=== PATIENT | male | born 1975 | race Caucasian/White ===

== ENCOUNTER → 2018-03-10 13:11 | Outpatient (CLI) | payer MEDICAID, SELFPAY ==
--- NOTE | 2018-03-10 13:15 | MRI_ITS ---
STUDY: MRI RIGHT ELBOW REASON FOR EXAM: Male, 42 years old. Pain. TECHNIQUE: Standardized fat and water weighted pulse sequences were obtained in all 3 orthogonal planes. COMPARISON: December 29, 2016. FINDINGS: There is a small volume joint effusion of the radio-capitellum articulation. Normal radial collateral ligamentous complex. There is a tendinosis of the common extensor tendon origin with a partial deep surface tear, series 4 images 9/20 and 10/20. There is mild lateral epicondylar edema, series 4 image 11/20. Normal ulnotrochlear articulation. Normal ulnar collateral ligamentous complex. There is tendinosis with tendon thickening of the common flexor tendon. The cubital tunnel is normal, with a normal ulnar nerve. Normal biceps tendon and distal insertion. Normal lacertus fibrosis. Normal brachialis musculotendinous insertion. Normal triceps tendon and teno-osseous insertion. Normal olecranon process. The visualized distal humerus, proximal radius, and ulna are normal. The visualized muscles of the distal arm and proximal forearm are normal. The soft tissue structures are unremarkable. MRI/Upper Ext Joint Only(Routine) IMPRESSION: Lateral epicondylitis with tendinosis and partial tearing of the common extensor tendon. Electronically Signed: Mauri Hendrickson MD at 8:38 EST , Service support ,
--- OUTSIDE RECORDS SUMMARY | 2018-05-15 03:11 | XMS RPT_ITS ---
:1975 Author Organization [facility] Care Team Providers Name Role Phone WAYDoris PA, MRElio EATON Attending Unavailable WAYT PA, MR. EATON Primary Care Unavailable LEMON, MICAH (PT) Attending Unavailable WAYT, DENNIS P (PA) Referring Unavailable LEMON, MICAH (PT) Attending Unavailable WAYT, DENNIS P (PA) Referring Unavailable WAYT, DENNIS P (PA) Referring Unavailable LEMON, MICAH (PT) Attending Unavailable WAYT, DENNIS P (PA) Referring Unavailable LEMON, MICAH (PT) Attending Unavailable WAYT, DENNIS P (PA) Referring Unavailable LEMON, MICAH (PT) Attending Unavailable WAYT, DENNIS P (PA) Referring Unavailable LEMON, MICAH (PT) Attending Unavailable WAYT, DENNIS P (PA) Referring Unavailable LEMON, MICAH (PT) Attending Unavailable WAYT, DENNIS P (PA) Referring Unavailable WAYT, DENNIS P (PA) Referring Unavailable Wayt, Dennis Attending Unavailable Wayt, Dennis Referring Unavailable Wayt, Dennis Attending Unavailable Wayt, Dennis Referring Unavailable Primay Care Physicia, No Primary Care Unavailable Mik Penn Attending Unavailable Wayt, Dennis Referring Unavailable Leonarda, Dennis Primary Care Unavailable Leonarda, Dennis Attending Unavailable Wayt, Dennis Referring Unavailable Wayt, Dennis Attending Unavailable Wayt, Dennis Referring Unavailable PROBLEMS PROBLEMS DATE TYPE CONDITION / CODE ATTENDING STATUS SOURCE 03/14/2018 Unknown M77.10 - Lexi Brower Dennis Active [facility] epicondylitis, [facility] unspecified elbow Hospital / M77.10(ICD-10) Repository 02/10/2018 Active Lateral LEMONMICAH Active [facility] epicondylitis, (PT) [facility] right elbow / Repository M77.11(ICD-10) 02/10/2018 Active Lateral LEMON, MICAH Active [facility] epicondylitis, (PT) [facility] left elbow / Repository M77.12(ICD-10) 04/11/2017 Unknown M25.521 - Pain in Mik Penn Active [facility] right elbow / Community M25.521(ICD-10) Hospital Repository 04/11/2017 Unknown M25.522 - Pain in Mik Penn Active [facility] left elbow / Community M25.522(ICD-10) Hospital Repository PROCEDURES PROCEDURES No Procedure Records FoundRESULTS RESULTS ORTHOPEDIC VISIT Observed: 03/14/2018 Status: F Source: [place] REPORT 4:03 PM [facility] REPOSITORY [facility] Orthopa[facility]ics AND Sports Medicine [address] [place] [address] OFFICE VISIT Date of Service: 03/14/18 MR#: [id number] Acct: [id number] Name: SANJEEV COLORADO Rep #: [id number] : 1975 Provider: BOOM Brower Age/Sex: 42/M Location: [facility] Status: Signed Intake Intake Visit Reasons: RIGHT ELBOW Is patient in pain?: Yes Pain scale (1-10): 8 Allergies meperidine [From Demerol] Allergy (Verified 02/23/18 09:59) unknown Medications nabumetone 750 mg tablet 750 mg PO BID 04/11/17 [History Confirmed 04/11/17] PFSH Surgical History clavicle repair (Inactive) Social History Smoking Status: Heavy Smoker (>10/day) HPI RIGHT ELBOW: Details: SANJEEV COLORADO is a 42 year old M here today for MRI review of his right elbow, he continues to have pain and decreased rom. He is careful with ADLs and generally tries not to use it. Ortho Exam Right Elbow ROM: Yes Flexion 0-140 and Extension 0 Test: No Varus Stress Test, No Valgus Stress Test, No TTP Medial Epicondyle, Yes TTP Lateral Epicondyle, Yes Pain w/ resist wrist ext, No Pain w/ resist wrist flex, Yes Pain w/ resist pronation, No Ulnar Nerve Subluxation Sensation: Radial: I, Ulnar: I, Median: I Motor: Elbow Extension: 4, Elbow Flexion: 4 ELBOW: No evident abnormalities on inspection of the elbow. He has no ecchymosis/bruising, erythema, or other skin changes. Patient has evident reproducible localized tenderness on the lateral epicondyle as well as pain with certain resisted movements of the wrist that would also indicate lateral epicondylitis. He does have full range of motion of the elbow and the wrist. Left Elbow Test: No Valgus Stress Test, No Varus Stress Test, No TTP Medial Epicondyle, Yes TTP Lateral Epicondyle, Yes Pain w/ resist wrist ext, No Pain w/ resist wrist flex, Yes Pain w/ resist pronation, No Thenar Atrophy, No Ulnar Nerve Subluxation ROM: Yes Flexion 0-140 and Extension 0 Sensation: Radial: I, Ulnar: I, Median: I Motor: Elbow Extension: 5, Elbow Flexion: 5 ELBOW: No evident abnormalities on inspection of the elbow. He has no ecchymosis/bruising, erythema, or other skin changes. He does have evident localized tenderness on the lateral epicondyle at the same time is less severe than the right side. Patient does have full range of motion of the elbow and the wrist at this time. He has normal sensation throughout the extremity. Office Procedures Kenalog 40 mg/mL suspension for injection (triamcinolone acetonide) 40 mg Intrabursal ONCE Injections Yes Lateral Epicondyle Bilateral Office Meds Kenalog Performing Provider: BOOM Tierney Administered by: BOOM Tierney on 03/14/18 14:02 Dose Route Admin Location Lot Number Expiration Date [employer] Operator 40 mg Intrabursal bilateral elbow [id number] 04/22/19 5096-5811-52 [facility] Assessment AND Plan Problems 1. Lateral epicondylitis, right elbow M77.11 2. Lateral epicondylitis, left elbow M77.12 Plan Today in the office we did review patient's MRI which did show evident tendinitis/epicondylitis with a partial tear of the common extensor tendon. We did discuss anatomy and physiology of the elbow as well as pathophysiology of this injury. After discussing these things we did discuss treatment options. At this time patient has already done conservative measures with anti-inflammatories ice as well as physical therapy. He did have an injection has been a while though he would like to proceed with an injection into the lateral epicondyle of both the right in the left elbow. We did discuss the injection and patient's questions were answered (has had previous injection) was signed. Injections were given under a normal sterile fashion on the lateral epicondyle and adjacent insertion of the common extensor tendon. Patient tolerated procedure very well with minimal discomfort. He is to ice and take anti-inflammatories for the next few days. We did discuss that he needs to continue doing the eccentric exercises given by physical therapy. I would like him to continue to wear the brace and ice the area. He also needs to really start working on modifications with activities such as lifting with the hand supinated rather than pronated trying to limit also wrist extension. He has had these pains for 3 years and therefore is going to take a collective group of things for this to probably resolve. Patient understands this and he will continue with these measures. At this time all of his questions were answered. Patient can return in 3-4 months if he needs more injections. This note was generated with Seva Search dictation software. It may contain incorrect words, spelling, and punctuation that were not noted in checking the note before signing. 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 ([id number]) 03/14/18 8310 <Electronically signed by Dennis [employer]> Date [facility] Signature: Date (if applicable) CC: UPPER EXT JOINT Observed: 03/10/2018 Status: F Source: [place] ONLY(ROUTINE) 1:15 PM [facility] REPOSITORY [facility] Imaging Services [address] [place] [address] Upper Ext Joint Only(Routine) MR#: [id number] Acct: [id number] Name: SANJEEV COLORADO Rep #: [id number] : 1975 M 42 From: Mauri Hendrickson MD PCP: Care Physician, No Primary Status: REG CLI Study: Upper Ext Joint Only(Routine) Date of Exam: 03/10/18 Exam# [id number] Ordering Dr: Dennis Brower STUDY: MRI RIGHT ELBOW REASON FOR EXAM: Male, 42 years old. Pain. TECHNIQUE: Standardized fat and water weighted pulse sequences were obtained in all 3 orthogonal planes. COMPARISON: December 29, 2016. FINDINGS: There is a small volume joint effusion of the radio-capitellum articulation. Normal radial collateral ligamentous complex. There is a tendinosis of the common extensor tendon origin with a partial deep surface tear, series 4 images 9/20 and 10/20. There is mild lateral epicondylar edema, series 4 image 11/20. Normal ulnotrochlear articulation. Normal ulnar collateral ligamentous complex. There is tendinosis with tendon thickening of the common flexor tendon. The cubital tunnel is normal, with a normal ulnar nerve. Normal biceps tendon and distal insertion. Normal lacertus fibrosis. Normal brachialis musculotendinous insertion. Normal triceps tendon and teno-osseous insertion. Normal olecranon process. The visualized distal humerus, proximal radius, and ulna are normal. The visualized muscles of the distal arm and proximal forearm are normal. The soft tissue structures are unremarkable. MRI/Upper Ext Joint Only(Routine) IMPRESSION: Lateral epicondylitis with tendinosis and partial tearing of the common extensor tendon. Electronically Signed: Mauri Hendrickson MD at 8:38 EST , Service support , CC: No Primary Care Physician; BOOM Brower Rounder And Backer: Signed ORTHOPEDIC VISIT Observed: 02/23/2018 Status: F Source: [place] REPORT 12:39 PM [facility] REPOSITORY [facility] Orthopaedics AND Sports Medicine [address] [place] [address] [address] [place] [address] OFFICE VISIT Date of Service: 02/23/18 MR#: [id number] Acct: [id number] Name: SANJEEV COLORADO Rep #: [id number] : 1975 Provider: BOOM Brower Age/Sex: 42/M [place] [facility] [place] [place]: Signed Intake Intake Visit Reasons: bilateral elbow Is patient in pain?: Yes Allergies meperidine [From Demerol] Allergy (Verified 02/23/18 09:59) unknown Medications nabumetone 750 mg tablet 750 mg PO BID 04/11/17 [History Confirmed 04/11/17] PFSH Surgical History clavicle repair (Inactive) Social History Smoking Status: Heavy Smoker (>10/day) HPI bilateral elbow: Details: SANJEEV COLORADO is a 42 year old M here today for continued bilateral elbow pain, right greater than left. Patient states that he has pain over his lateral elbows. He complains of pain that radiates into his forearm. He notes that he did occupational therapy which was not helpful. Patient has had injections previously which was helpful for only 2-3 months. He denies any MRI. ROS Const Reports system reviewed and no additional complaints, except as docu Eyes Reports system reviewed and no additional complaints, except as docu ENT Reports system reviewed and no additional complaints, except as docu Card Reports system reviewed and no additional complaints, except as docu Resp Reports system reviewed and no additional complaints, except as docu GI Reports system reviewed and no additional complaints, except as docu Reports system reviewed and no additional complaints, except as docu Musc Reports joint pain Skin/Breast Reports system reviewed and no additional complaints, except as docu Neuro Yes system reviewed and no additional complaints, except as docu Psych Reports system reviewed and no additional complaints, except as docu Endo Reports system reviewed and no additional complaints, except as docu Ortho Exam Right Elbow Swelling: No Contralateral Normal: Yes ROM: Yes Flexion 0-140 and Extension 0 Test: No Valgus Stress Test, No Varus Stress Test, No TTP Medial Epicondyle, Yes TTP Lateral Epicondyle, Yes Pain w/ resist wrist ext, No Pain w/ resist wrist flex, No Pain w/ resist pronation, No Ulnar Nerve Subluxation Sensation: Radial: I, Ulnar: I, Median: I Motor: Elbow Extension: 4, Elbow Flexion: 4 ELBOW: Patient has no evident abnormalities on inspection of the elbow. He has no localized or generalized swelling. There are no other skin abnormalities noted. He has full range of motion of the elbow. He does describe this with full flexion and extension. He does have evident tenderness with resisted extension and resisted supination of the wrist. He does have evident tenderness on palpation of the lateral epicondylar region. Assessment AND Plan Problems 1. Lateral epicondylitis of right elbow M77.11 Plan This time patient has had pain and problems with the elbows really for years. He has had an injections in the elbows which have only helped for 2-3 months and then everything returns to the same. He has now completed physical therapy and has not had any relief. At this point we are to proceed with MRI of the right elbow to evaluate the extensor tendons for possible tear that could require surgical intervention especially since he has failed conservative measures. Continue with icing, anti-inflammatories, bracing and exercises given by physical therapy in the meantime. Notify sooner of any injuries, increased pain, increasing swelling or any other symptoms. Patient will follow-up in the office after the MRI is done to review. If there is no major evidence of tears or other normality's will proceed with injection into the lateral epicondylar region. All patient's questions were answered satisfaction today. This note was generated with Seva Search dictation software. It may contain incorrect words, spelling, and punctuation that were not noted in checking the note before signing. Orders Orders: Coding Level of Care Code Off vis,est,level 3 Diagnoses Lateral epicondylitis of right elbow M77.11 Laterality: right 02/23/18 1239 <Electronically signed by Dennis NUR> Date Dennis NUR Cosigner Signature: Date (if applicable) CC: PROGRESS Observed: 02/17/2018 Status: COMPLETED Source: [place] 4:28 PM [facility] REPOSITORY [facility] ID: [id number] Author: El (Pt) Kylie Service: (none) Author Type: Physical Therapist Type: Progress Notes Filed: 02/17/2018 4:39 PM Note Text: Episode Visit Count: 9 Therapist That Will Oversee The Plan Of Care: Micah Martinez Start of Care Date: 01/06/18 Onset Date: 01/07/20 Plan of Care Certification Date: 01/06/18 Patient Identified by Name and Date of : Yes REHABILITATION AND SPORTS THERAPY PHYSICAL THERAPY TREATMENT NOTE ASSESSMENT: Sanjeev [place] demonstrated difficulty with movement B elbows and wrist due to continual pain right greater left. He continues to have pain and tightness at end of therapy after exercises, manual soft tissue mobs and US. The patient will continue to benefit from continued skilled physical therapy for pain control measures to improve function. PLAN FOR NEXT VISIT: Patient to see physcian and will call and let us know if further treatment is ordered. SUBJECTIVE: Patient reports the right elbow is worse and has shooting pain down to the wrist. Still painful left elbow as well. Patient reports no relief of tightness with therapy treatments. Pain Score: 8/10 (left elbow 6/10 shooting pain to forearm and tight ) Pain Location: Elbow - Right Description: Shooting;Tightness Frequency: Continuous Post Treatment Pain Score: No Change OBJECTIVE MEASURES WITH LEVEL OF FUNCTION: UE AROM R Wrist Extension: 40 Degrees R Wrist Flexion: 62 Degrees L Wrist Extension: 51 Degrees L Wrist Flexion: 75 Degrees All active movements with pain. TREATMENT: Therapeutic Exercise: 1: UBE seat 5, x 5 minutes. Subjective taken during this time. 2: very gentle wrist extensor stretches 30 sec holds x 3 each arm. Skilled Intervention: Patient was educated in proper exercise technique and purpose for exercises. Reviewed and educated patient on additions/changes for home exercise program continue with active stretching and movements per tolerance. Correct performance of therapeutic exercises was facilitated with verbal cuing. Manual Therapy: 1: IASTM using Hawk Security Coordinator tools to R lateral epicondyle (surrounding tissues) 2: IASTM to L lateral epicondyle soft tissues using [employer] Coordinator tools. Skilled Intervention: Manual skills to improve joint mobility, ROM, and decrease pain. Utilized anatomy knowledge of the therapist, and assessment of patient's response to intervention. Modalities: Body Region Treated - Ultrasound: R and L lateral epicondyle/extensor tendon and proximal muscle tissue Patient Position: seated with elbow/forearm propped on plinth Mode: 50% pulsed w/cm2: 1.2 Minutes: 18 (x 10 on right and 8 on left arm) See flowsheet for details regarding treatment. Skilled Intervention: Proper administration and selection of modality based on clinical presentation, deficits, and needs. Patient response monitored throughout treatment. Billing: [facility]: Therapeutic Exercise (95505): 1:1 time: 10 minutes (1 unit: 8-22 mins) Manual Therapy (98516): 1:1 time: 15 minutes (1 unit: 8-22 mins) Modalities Ultrasound (78837) 1:1 time: 18 minutes (1 unit: 8-22 mins) Total time: 43 minutes ROSEMARIE Bucio PT CNTHERAPY Observed: 02/17/2018 Status: COMPLETED Source: [place] 3:30 PM [facility] REPOSITORY OT/PT/Speech Visit (PTWS) SANJEEV COLORADO ([id number]) 1975 M Date Time Provider Department 02/17/18 3:30 PM EMILY WATSON ([facility]) PTWS Date Time Provider Department Center 02/17/2018 3:30 PM [id number] NANCY ([facility]) PTWS [facility] Reason for Visit: Physical Therapy [503] Primary Visit Diagnosis:Lateral epicondylitis of both elbows [M77.11, M77.12] Allergies As of Date: 02/17/2018 (Not on File) Date Reviewed: Never Reviewed Progress Notes: El Espinal PT 02/17/2018 4:39 PM Signed Episode Visit Count: 9 Therapist That Will Oversee The Plan Of Care: Micah Martinez Start of Care Date: 01/06/18 Onset Date: 01/07/20 Plan of Care Certification Date: 01/06/18 Patient Identified by Name and Date of : Yes REHABILITATION AND SPORTS THERAPY PHYSICAL THERAPY TREATMENT NOTE ASSESSMENT: Sanjeev [place] demonstrated difficulty with movement B elbows and wrist due to continual pain right greater left. He continues to have pain and tightness at end of therapy after exercises, manual soft tissue mobs and US. The patient will continue to benefit from continued skilled physical therapy for pain control measures to improve function. PLAN FOR NEXT VISIT: Patient to see physcian and will call and let us know if further treatment is ordered. SUBJECTIVE: Patient reports the right elbow is worse and has shooting pain down to the wrist. Still painful left elbow as well. Patient reports no relief of tightness with therapy treatments. Pain Score: 8/10 (left elbow 6/10 shooting pain to forearm and tight ) Pain Location: Elbow - Right Description: Shooting;Tightness Frequency: Continuous Post Treatment Pain Score: No Change OBJECTIVE MEASURES WITH LEVEL OF FUNCTION: UE AROM R Wrist Extension: 40 Degrees R Wrist Flexion: 62 Degrees L Wrist Extension: 51 Degrees L Wrist Flexion: 75 Degrees All active movements with pain. TREATMENT: Therapeutic Exercise: 1: UBE seat 5, x 5 minutes. Subjective taken during this time. 2: very gentle wrist extensor stretches 30 sec holds x 3 each arm. Skilled Intervention: Patient was educated in proper exercise technique and purpose for exercises. Reviewed and educated patient on additions/changes for home exercise program continue with active stretching and movements per tolerance. Correct performance of therapeutic exercises was facilitated with verbal cuing. Manual Therapy: 1: IASTM using Hawk Security Coordinator tools to R lateral epicondyle (surrounding tissues) 2: IASTM to L lateral epicondyle soft tissues using [employer] Coordinator tools. Skilled Intervention: Manual skills to improve joint mobility, ROM, and decrease pain. Utilized anatomy knowledge of the therapist, and assessment of patient's response to intervention. Modalities: Body Region Treated - Ultrasound: R and L lateral epicondyle/extensor tendon and proximal muscle tissue Patient Position: seated with elbow/forearm propped on plinth Mode: 50% pulsed w/cm2: 1.2 Minutes: 18 (x 10 on right and 8 on left arm) See flowsheet for details regarding treatment. Skilled Intervention: Proper administration and selection of modality based on clinical presentation, deficits, and needs. Patient response monitored throughout treatment. Billing: [facility]: Therapeutic Exercise (95978): 1:1 time: 10 minutes (1 unit: 8-22 mins) Manual Therapy (59644): 1:1 time: 15 minutes (1 unit: 8-22 mins) Modalities Ultrasound (92585) 1:1 time: 18 minutes (1 unit: 8-22 mins) Total time: 43 minutes Emily Watson PT-Arabella Espinal PT Previous Version Follow-up and Disposition History Recorded CNTHERAPY Observed: 02/10/2018 Status: COMPLETED Source: [place] 2:30 PM [facility] REPOSITORY OT/PT/Speech Visit (PTWS) SANJEEV COLORADO ([id number]) 1975 M Date Time Provider Department 02/10/18 2:30 PM MICAH MARTINEZ (PT) PTWS Date Time Provider Department [place] 02/10/2018 2:30 PM [id number] MARTINEZ (PT) PTWS [facility] Reason for Visit: Physical Therapy [503] Primary Visit Diagnosis:Lateral epicondylitis of both elbows [M77.11, M77.12] Allergies As of Date: 02/10/2018 (Not on File) Date Reviewed: Never Reviewed Progress Notes: Micah Martinez, PT 02/10/2018 3:33 PM Signed Episode Visit Count: 8 Therapist That Will Oversee The Plan Of Care: Micah Martinez Start of Care Date: 01/06/18 Onset Date: 01/07/20 Plan of Care Certification Date: 01/06/18 Patient Identified by Name and Date of : Yes REHABILITATION AND SPORTS THERAPY PHYSICAL THERAPY TREATMENT NOTE ASSESSMENT: Sanjeev [place] demonstrated improvements in subjective pain rating from the last couple of visits, but continues to have difficulty with significant pain levels, decreased ROM, weakness and limited UE function. The patient will continue to benefit from continued skilled physical therapy for AROM, stretches, strengthening, manual techniques and modalities for pain relief. PLAN FOR NEXT VISIT: Continue with current treatment. Measure wrist flex and ext ROM. Pt will then follow up wiht referring physician 02/23/18. SUBJECTIVE: Pt notes his R elbow continues to be more painful than the L. He rates at a 6/10 today. Pain Score: 6/10 Pain Location: Elbow - Right;Elbow - Left Frequency: Continuous Post Treatment Pain Score: (not stated today) OBJECTIVE MEASURES WITH LEVEL OF FUNCTION: Elbow Observations R Elbow/Wrist Palpation Tenderness: Lateral epicondyle (soft tissue restrictions palpable during IASTM) L Elbow/Wrist Palpation Tenderness: Lateral epicondyle (less restrictions palpable and less tenderness vs R) TREATMENT: Therapeutic Exercise: 1: UBE seat 5, x 4:30 min Skilled Intervention: Patient was educated in proper exercise technique and purpose for exercises. Reviewed and educated patient on additions/changes for home exercise program and pt is to continue with frequent wrist and forearm stretches through the day. Skilled judgment was provided in selection of appropriate interventions. Correct performance of therapeutic exercises was facilitated with verbal and visual cuing. Patient education as noted. Manual Therapy: Skilled Intervention: Manual skills to improve joint mobility, ROM, and decrease pain. Utilized anatomy knowledge of the therapist, and assessment of patient's response to intervention. Modalities: See flowsheet for details regarding treatment. Skilled Intervention: Proper administration and selection of modality based on clinical presentation, deficits, and needs. Patient response monitored throughout treatment. Billing: [facility]: Therapeutic Exercise (82605): 1:1 time: 8 minutes (1 unit: 8-22 mins) Manual Therapy (76211): 1:1 time: 15 minutes (1 unit: 8-22 mins) Modalities Ultrasound (00383) 1:1 time: 20 minutes1 unit: 8-22 mins Total time: 43 minutes Micah Martinez PT PROGRESS Observed: 02/10/2018 Status: COMPLETED Source: [place] 2:27 PM [facility] [facility] [place] REPOS[facility] HNO ID: [id number] Author: Micah (Pt) Juan Service: (none) Author Type: Physical Therapist Type: Progress Notes Filed: 02/10/2018 3:33 PM Note Text: Episode Visit Count: 8 Therapist That Will Oversee The Plan Of Care: Micah Martinez Start of Care Date: 01/06/18 Onset Date: 01/07/20 Plan of Care Certification Date: 01/06/18 Patient Identified by Name and Date of : Yes REHABILITATION AND SPORTS THERAPY PHYSICAL THERAPY TREATMENT NOTE ASSESSMENT: Sanjeev [place] demonstrated improvements in subjective pain rating from the last couple of visits, but continues to have difficulty with significant pain levels, decreased ROM, weakness and limited UE function. The patient will continue to benefit from continued skilled physical therapy for AROM, stretches, strengthening, manual techniques and modalities for pain relief. PLAN FOR NEXT VISIT: Continue with current treatment. Measure wrist flex and ext ROM. Pt will then follow up wiht referring physician 02/23/18. SUBJECTIVE: Pt notes his R elbow continues to be more painful than the L. He rates at a 6/10 today. Pain Score: 6/10 Pain Location: Elbow - Right;Elbow - Left Frequency: Continuous Post Treatment Pain Score: (not stated today) OBJECTIVE MEASURES WITH LEVEL OF FUNCTION: Elbow Observations R Elbow/Wrist Palpation Tenderness: Lateral epicondyle (soft tissue restrictions palpable during IASTM) L Elbow/Wrist Palpation Tenderness: Lateral epicondyle (less restrictions palpable and less tenderness vs R) TREATMENT: Therapeutic Exercise: 1: UBE seat 5, x 4:30 min Skilled Intervention: Patient was educated in proper exercise technique and purpose for exercises. Reviewed and educated patient on additions/changes for home exercise program and pt is to continue with frequent wrist and forearm stretches through the day. Skilled judgment was provided in selection of appropriate interventions. Correct performance of therapeutic exercises was facilitated with verbal and visual cuing. Patient education as noted. Manual Therapy: Skilled Intervention: Manual skills to improve joint mobility, ROM, and decrease pain. Utilized anatomy knowledge of the therapist, and assessment of patient's response to intervention. Modalities: See flowsheet for details regarding treatment. Skilled Intervention: Proper administration and selection of modality based on clinical presentation, deficits, and needs. Patient response monitored throughout treatment. Billing: [facility]: Therapeutic Exercise ([id number]): 1:1 time: 8 minutes (1 unit: 8-22 mins) Manual Therapy ([id number]): 1:1 time: 15 minutes (1 unit: 8-22 mins) Modalities Ultrasound (72158) 1:1 time: 20 minutes1 unit: 8-22 mins Total time: 43 minutes Micah Martinez PT PROGRESS Observed: 02/06/2018 Status: COMPLETED Source: [place] 4:17 PM [facility] [place] REPOSITORY HNO ID: [id number] Author: Micah (Pt) Juna Service: (none) Author Type: Physical Therapist Type: Progress Notes Filed: 02/08/2018 12:28 PM Note Text: Episode Visit Count: 7 Therapist That Will Oversee The Plan Of Care: Micah Martinez Start of Care Date: 01/06/18 Onset Date: 01/07/20 Plan of Care Certification Date: 01/06/18 Patient Identified by Name and Date of : Yes REHABILITATION AND SPORTS THERAPY PHYSICAL THERAPY PROGRESS REPORT PLAN OF CARE UPDATE: Assessment: Sanjeev [place] exhibits difficulty with continued pain and functional limitations and improvements in some AROM measurements. He continues to be limited with lifting, physical activities, recreational activities, use hand with arm at shoulder level, driving, gripping and carrying. He is progressing slower than expected towards his therapy goals as demonstrated by: documented subjective information on progress and documented objective information regarding strength, range of motion and overall function. He will benefit from continued skilled therapy requiring therapeutic exercise, manual techniques and modalities in order to improve AROM, pain and function. Functional gains: Increased independence with HEP Increased ROM Goals for Episode of Care: created on 01/06/18 through 03/08/18 [place] in home exercise program. Patient will decrease pain rating by 2 points to meet minimal clinical important difference for numeric pain rating scale. Patient will increase active ROM of B wrist and elbows to 70-75 deg and 0-145 deg respectively to allow pt to improved performance of ADLs. Patient will increase strength of B UE to 4+ to 5/5 to allow for return to prior functional status. Perform daily activities, work activities and undisturbed sleep with decreased report of symptoms/pain in 4-8 weeks. Demonstrate improvement on functional score: Patient will improve his/her score on Quick DASH by 8% to indicate a Minimal Clinical Important Difference . G CODE REPORTING Based on clinical assessment and the score on the Quick Dash Assessment Tool, the G code and corresponding severity modifiers are documented below. Evaluation: 01/06/2018 Current Status: Carrying, Moving and Handling Objects: G8984 CK 40-59% impaired Goal Status: Carrying, Moving and Handling Objects: G8985 CK 40-59% impaired Planned Interventions, Frequency, and Duration: 2x/week, 4 weeks Total Number of Visits Planned: 8 Patient to be seen for Therapeutic exercise;Manual therapy;Patient/Family/Caregiver Education;ModalitiesUltrasound PLAN FOR NEXT VISIT: Continue with ther ex stretches and ROM, IASTM and modalities to improve towards pain and mobility goals. 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 He notes continued pain, but states, It seems to be back to about where it was before we did the needling thing. Pain Score: 8/10 (8/10 R elbow; 6-7/10 L elbow) Pain Location: Elbow - Right;Elbow - Left Frequency: Continuous Post Treatment Pain Score: 7/10 Pain Location: Elbow - Right;Elbow - Left OBJECTIVE MEASURES WITH LEVEL OF FUNCTION: UE AROM R Elbow Extension: 7 Degrees (pain) R Elbow Flexion: 140 Degrees (pain) R Forearm Supination: 75 Degrees (no increase in pain) R Forearm Pronation: 90 Degrees (no increase in pain) R Wrist Extension: 55 Degrees (pain) R Wrist Flexion: 73 Degrees (pain) L Elbow Extension: 1 (pain) L Elbow Flexion: 145 Degrees (pain) L Forearm Supination: 77 Degrees (no increase in pain) L Forearm Pronation: 90 Degrees (no increase in pain) L Wrist Extension: 65 Degrees (pain) L Wrist Flexion: 70 Degrees (pain) UE and Cervical Strength R Elbow Flexion (C6): 5/5 R Elbow Extension (C7): 5/5 R Forearm Supination: 4+/5 (pain) R Forearm Pronation: 5/5 R Wrist Extension: 3+/5 (pain) R Wrist Flexion: 4+/5 L Elbow Flexion (C6): 5/5 L Elbow Extension (C7): 4+/5 L Forearm Supination: 4/5 (pain) L Forearm Pronation: 4/5 (pain) L Wrist Extension: 3+/5 (pain) L Wrist Flexion: 4-/5 (pain) TREATMENT: Therapeutic Exercise: 1: UBE seat 5, x 3 min 2: very gentle wrist extensor stretches 30 sec holds x 3 each arm. Skilled Intervention: Patient was educated in proper exercise technique and purpose for exercises. Reviewed and educated patient on additions/changes for home exercise program and pt to continue with gentle wrist and forearm stretches/ROM frequently throughout the day. Skilled judgment was provided in selection of appropriate interventions. Correct performance of therapeutic exercises was facilitated with verbal and visual cuing. Patient education as noted. Manual Therapy: 1: IASTM using [employer] tools to R lateral epicondyle (surrounding tissues) 2: IASTM to L lateral epicondyle soft tissues using [employer] tools. Skilled Intervention: Manual skills to improve joint mobility, ROM, and decrease pain. Utilized anatomy knowledge of the therapist, and assessment of patient's response to intervention. Modalities: Body Region Treated - Ultrasound: R and L lateral epicondyle/extensor tendon and proximal muscle tissue Patient Position: seated with elbow/forearm propped on plinth Mode: 50% pulsed w/cm2: 1.2 Minutes: 20 (x 10 each arm) See flowsheet for details regarding treatment. Skilled Intervention: Proper administration and selection of modality based on clinical presentation, deficits, and needs. Patient response monitored throughout treatment. Billing: [facility]: Therapeutic Exercise ([id number]): 1:1 time: 10 minutes (1 unit: 8-22 mins) Manual Therapy ([id number]): 1:1 time: 12 minutes (1 unit: 8-22 mins) Modalities Ultrasound ([id number]) 1:1 time: 20 minutes1 unit: 8-22 mins Total time: 42 minutes Micah Martinez PT CNTHERAPY Observed: 02/06/2018 Status: COMPLETED Source: [place] 4:15 PM [facility] REPOSITORY OT/PT/Speech Visit (PTWS) SANJEEV COLORADO ([id number]) 1975 M Date Time Provider Department 02/06/18 4:15 PM MICAH MARTINEZ (PT) PTWS Date Time Provider Department Center 02/06/2018 4:15 PM [id number] MARTINEZ (PT) PTWS [facility] [place] Reason for Visit: PT Progress Note [1596] Primary Visit Diagnosis:Lateral epicondylitis of both elbows [M77.11, M77.12] Allergies As of Date: 02/06/2018 (Not on File) Date Reviewed: Never Reviewed Progress Notes: Micah Martinez PT 02/08/2018 12:28 PM Signed Episode Visit Count: 7 Therapist That Will Oversee The Plan Of Care: Micah Martinez Start of Care Date: 01/06/18 Onset Date: 01/07/20 Plan of Care Certification Date: 01/06/18 Patient Identified by Name and Date of : Yes REHABILITATION AND SPORTS THERAPY PHYSICAL THERAPY PROGRESS REPORT PLAN OF CARE UPDATE: Assessment: Sanjeev [place] exhibits difficulty with continued pain and functional limitations and improvements in some AROM measurements. He continues to be limited with lifting, physical activities, recreational activities, use hand with arm at shoulder level, driving, gripping and carrying. He is progressing slower than expected towards his therapy goals as demonstrated by: documented subjective information on progress and documented objective information regarding strength, range of motion and overall function. He will benefit from continued skilled therapy requiring therapeutic exercise, manual techniques and modalities in order to improve AROM, pain and function. Functional gains: Increased independence with HEP Increased ROM Goals for Episode of Care: created on 01/06/18 through 03/08/18 [place] in home exercise program. Patient will decrease pain rating by 2 points to meet minimal clinical important difference for numeric pain rating scale. Patient will increase active ROM of B wrist and elbows to 70-75 deg and 0-145 deg respectively to allow pt to improved performance of ADLs. Patient will increase strength of B UE to 4+ to 5/5 to allow for return to prior functional status. Perform daily activities, work activities and undisturbed sleep with decreased report of symptoms/pain in 4-8 weeks. Demonstrate improvement on functional score: Patient will improve his/her score on Quick DASH by 8% to indicate a Minimal Clinical Important Difference . G CODE REPORTING Based on clinical assessment and the score on the Quick Dash Assessment Tool, the G code and corresponding severity modifiers are documented below. Evaluation: 01/06/2018 Current Status: Carrying, Moving and Handling Objects: G8984 CK 40-59% impaired Goal Status: Carrying, Moving and Handling Objects: G8985 CK 40-59% impaired Planned Interventions, Frequency, and Duration: 2x/week, 4 weeks Total Number of Visits Planned: 8 Patient to be seen for Therapeutic exercise;Manual therapy;Patient/Family/Caregiver Education;ModalitiesUltrasound PLAN FOR NEXT VISIT: Continue with ther ex stretches and ROM, IASTM and modalities to improve towards pain and mobility goals. 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 He notes continued pain, but states, It seems to be back to about where it was before we did the needling thing. Pain Score: 8/10 (8/10 R elbow; 6-7/10 L elbow) Pain Location: Elbow - Right;Elbow - Left Frequency: Continuous Post Treatment Pain Score: 7/10 Pain Location: Elbow - Right;Elbow - Left OBJECTIVE MEASURES WITH LEVEL OF FUNCTION: UE AROM R Elbow Extension: 7 Degrees (pain) R Elbow Flexion: 140 Degrees (pain) R Forearm Supination: 75 Degrees (no increase in pain) R Forearm Pronation: 90 Degrees (no increase in pain) R Wrist Extension: 55 Degrees (pain) R Wrist Flexion: 73 Degrees (pain) L Elbow Extension: 1 (pain) L Elbow Flexion: 145 Degrees (pain) L Forearm Supination: 77 Degrees (no increase in pain) L Forearm Pronation: 90 Degrees (no increase in pain) L Wrist Extension: 65 Degrees (pain) L Wrist Flexion: 70 Degrees (pain) UE and Cervical Strength R Elbow Flexion (C6): 5/5 R Elbow Extension (C7): 5/5 R Forearm Supination: 4+/5 (pain) R Forearm Pronation: 5/5 R Wrist Extension: 3+/5 (pain) R Wrist Flexion: 4+/5 L Elbow Flexion (C6): 5/5 L Elbow Extension (C7): 4+/5 L Forearm Supination: 4/5 (pain) L Forearm Pronation: 4/5 (pain) L Wrist Extension: 3+/5 (pain) L Wrist Flexion: 4-/5 (pain) TREATMENT: Therapeutic Exercise: 1: UBE seat 5, x 3 min 2: very gentle wrist extensor stretches 30 sec holds x 3 each arm. Skilled Intervention: Patient was educated in proper exercise technique and purpose for exercises. Reviewed and educated patient on additions/changes for home exercise program and pt to continue with gentle wrist and forearm stretches/ROM frequently throughout the day. Skilled judgment was provided in selection of appropriate interventions. Correct performance of therapeutic exercises was facilitated with verbal and visual cuing. Patient education as noted. Manual Therapy: 1: IASTM using [employer] tools to R lateral epicondyle (surrounding tissues) 2: IASTM to L lateral epicondyle soft tissues using [employer] tools. Skilled Intervention: Manual skills to improve joint mobility, ROM, and decrease pain. Utilized anatomy knowledge of the therapist, and assessment of patient's response to intervention. Modalities: Body Region Treated - Ultrasound: R and L lateral epicondyle/extensor tendon and proximal muscle tissue Patient Position: seated with elbow/forearm propped on plinth Mode: 50% pulsed w/cm2: 1.2 Minutes: 20 (x 10 each arm) See flowsheet for details regarding treatment. Skilled Intervention: Proper administration and selection of modality based on clinical presentation, deficits, and needs. Patient response monitored throughout treatment. Billing: [facility]: Therapeutic Exercise ([id number]): 1:1 time: 10 minutes (1 unit: 8-22 mins) Manual Therapy ([id number]): 1:1 time: 12 minutes (1 unit: 8-22 mins) Modalities Ultrasound ([id number]) 1:1 time: 20 minutes1 unit: 8-22 mins Total time: 42 minutes Micah Martinez, PT PROGRESS Observed: 01/30/2018 Status: COMPLETED Source: [place] 3:31 PM [facility] REPOSITORY HNO ID: [id number] Author: Micah (Pt) Juan Service: (none) Author Type: Physical Therapist Type: Progress Notes Filed: 01/30/2018 4:20 PM Note Text: Episode Visit Count: 6 Therapist That Will Oversee The Plan Of Care: Micah Martinez Start of Care Date: 01/06/18 Onset Date: 01/07/20 Plan of Care Certification Date: 01/06/18 Patient Identified by Name and Date of : Yes REHABILITATION AND SPORTS THERAPY PHYSICAL THERAPY TREATMENT NOTE ASSESSMENT: Sanjeev [place] demonstrated difficulty with continued pain and soft tissue restrictions. The patient will continue to benefit from continued skilled physical therapy for modalities, manual techniques and stretches. PLAN FOR NEXT VISIT: Continue with ultrasound, IASTM and gentle stretches to tolerance with use of UBE does not increase symptoms. SUBJECTIVE: Pt stating his elbow pain remained steady over the weekend with no significant increase or decrease. Pain Score: 8/10 Pain Location: Elbow - Right;Elbow - Left Frequency: Continuous Post Treatment Pain Score: 8/10 Pain Location: Elbow - Right;Elbow - Left OBJECTIVE MEASURES WITH LEVEL OF FUNCTION: Elbow Observations R Elbow/Wrist Palpation Tenderness: Lateral epicondyle (soft tissue restrictions palpable during IASTM) L Elbow/Wrist Palpation Tenderness: Lateral epicondyle (soft tissue restrictions palpable during IASTM) TREATMENT: Therapeutic Exercise: 1: very gentle wrist extensor stretches 30 sec holds x 3 each arm. Skilled Intervention: Patient was educated in proper exercise technique and purpose for exercises. Reviewed and educated patient on additions/changes for home exercise program and pt to continue with stretches frequently throughout the day. Skilled judgment was provided in selection of appropriate interventions. Correct performance of therapeutic exercises was facilitated with verbal and visual cuing. Patient education as noted. Manual Therapy: 1: IASTM using [employer] tools to R lateral epicondyle (surrounding tissues) 2: IASTM to L lateral epicondyle soft tissues using [employer] tools. Skilled Intervention: Manual skills to improve joint mobility, ROM, and decrease pain. Utilized anatomy knowledge of the therapist, and assessment of patient's response to intervention. Modalities: Body Region Treated - Ultrasound: R and L lateral epicondyle/extensor tendon and proximal muscle tissue Patient Position: seated with elbow/forearm propped on plinth Mode: 50% pulsed w/cm2: 1.2 Minutes: 20 (x 10 each arm) See flowsheet for details regarding treatment. Skilled Intervention: Proper administration and selection of modality based on clinical presentation, deficits, and needs. Patient response monitored throughout treatment. Billing: [facility]: Therapeutic Exercise ([id number]): 1:1 time: 8 minutes (1 unit: 8-22 mins) Manual Therapy (01096): 1:1 time: 12 minutes (1 unit: 8-22 mins) Modalities Ultrasound (55894) 1:1 time: 20 minutes1 unit: 8-22 mins Total time: 40 minutes Micah Martinez PT CNTHERAPY Observed: 01/30/2018 Status: COMPLETED Source: [place] 3:30 PM [facility] REPOSITORY OT/PT/Speech Visit (PTWS) SANJEEV [place] ([id number]) 1975 M Date Time Provider Department 01/30/18 3:30 PM MICAH MARTINEZ (PT) PTWS Date Time Provider Department Center 01/30/2018 3:30 PM [id number] MARTINEZ (PT) PTWS [facility] [place] Reason for Visit: Physical Therapy [503] Primary Visit Diagnosis:Lateral epicondylitis of both elbows [M77.11, M77.12] Allergies As of Date: 01/30/2018 (Not on File) Date Reviewed: Never Reviewed Progress Notes: Micah Martinez PT 01/30/2018 4:20 PM Signed Episode Visit Count: 6 Therapist That Will Oversee The Plan Of Care: Micah Martinez Start of Care Date: 01/06/18 Onset Date: 01/07/20 Plan of Care Certification Date: 01/06/18 Patient Identified by Name and Date of : Yes REHABILITATION AND SPORTS THERAPY PHYSICAL THERAPY TREATMENT NOTE ASSESSMENT: Sanjeev [place] demonstrated difficulty with continued pain and soft tissue restrictions. The patient will continue to benefit from continued skilled physical therapy for modalities, manual techniques and stretches. PLAN FOR NEXT VISIT: Continue with ultrasound, IASTM and gentle stretches to tolerance with use of UBE does not increase symptoms. SUBJECTIVE: Pt stating his elbow pain remained steady over the weekend with no significant increase or decrease. Pain Score: 8/10 Pain Location: Elbow - Right;Elbow - Left Frequency: Continuous Post Treatment Pain Score: 8/10 Pain Location: Elbow - Right;Elbow - Left OBJECTIVE MEASURES WITH LEVEL OF FUNCTION: Elbow Observations R Elbow/Wrist Palpation Tenderness: Lateral epicondyle (soft tissue restrictions palpable during IASTM) L Elbow/Wrist Palpation Tenderness: Lateral epicondyle (soft tissue restrictions palpable during IASTM) TREATMENT: Therapeutic Exercise: 1: very gentle wrist extensor stretches 30 sec holds x 3 each arm. Skilled Intervention: Patient was educated in proper exercise technique and purpose for exercises. Reviewed and educated patient on additions/changes for home exercise program and pt to continue with stretches frequently throughout the day. Skilled judgment was provided in selection of appropriate interventions. Correct performance of therapeutic exercises was facilitated with verbal and visual cuing. Patient education as noted. Manual Therapy: 1: IASTM using [employer] tools to R lateral epicondyle (surrounding tissues) 2: IASTM to L lateral epicondyle soft tissues using [employer] tools. Skilled Intervention: Manual skills to improve joint mobility, ROM, and decrease pain. Utilized anatomy knowledge of the therapist, and assessment of patient's response to intervention. Modalities: Body Region Treated - Ultrasound: R and L lateral epicondyle/extensor tendon and proximal muscle tissue Patient Position: seated with elbow/forearm propped on plinth Mode: 50% pulsed w/cm2: 1.2 Minutes: 20 (x 10 each arm) See flowsheet for details regarding treatment. Skilled Intervention: Proper administration and selection of modality based on clinical presentation, deficits, and needs. Patient response monitored throughout treatment. Billing: [facility]: Therapeutic Exercise (55106): 1:1 time: 8 minutes (1 unit: 8-22 mins) Manual Therapy ([id number]): 1:1 time: 12 minutes (1 unit: 8-22 mins) Modalities Ultrasound (77811) 1:1 time: 20 minutes1 unit: 8-22 mins Total time: 40 minutes Miach Martinez PT PROGRESS Observed: 01/27/2018 Status: COMPLETED Source: [place] 3:12 PM [facility] [place] REPOSITORY HNO ID: [id number] Author: Micah (Pt) Juan Service: (none) Author Type: Physical Therapist Type: Progress Notes Filed: 01/27/2018 3:25 PM Note Text: Episode Visit Count: 5 Therapist That Will Oversee The Plan Of Care: Micah Martinez Start of Care Date: 01/06/18 Onset Date: 01/07/20 Plan of Care Certification Date: 01/06/18 Patient Identified by Name and Date of : Yes REHABILITATION AND SPORTS THERAPY PHYSICAL THERAPY TREATMENT NOTE ASSESSMENT: Sanjeev [place] demonstrated difficulty with increased pain rating and difficulty with UE function (donning/doffing sweatshirt and limited exercise tolerance d/t pain). The patient will continue to benefit from continued skilled physical therapy for soft tissue restrictions, ROM and pain control. PLAN FOR NEXT VISIT: Resume ther ex activities per pt tolerance and continue with US, stretches. May also resume IASTM per tolerance to pressure. SUBJECTIVE: Pt reports increased pain after last session with introduction of dry needling. He states increased pain over the weekend and is a little less today (8/10 from 10). He notes especially when he straightens his elbow and R is a little worse than L. Pain Score: 8/10 Pain Location: Elbow - Right;Elbow - Left Description: Sharp;Tightness Frequency: Continuous Post Treatment Pain Description: (not rated, no worse) OBJECTIVE MEASURES WITH LEVEL OF FUNCTION: Pt demonstrating some guarding of hand/wrist and arms in avoiding elbow and wrist extension. TREATMENT: Therapeutic Exercise: 1: UBE seat 5 arms only x 1:30 min. Instructed pt to avoid tight gripping of handles. Stopped early d/t starting to irritate elbow pain. 2: very gentle wrist extensor stretches 30 sec holds x 3 each arm. Skilled Intervention: Patient was educated in proper exercise technique and purpose for exercises. Reviewed and educated patient on additions/changes for home exercise program Skilled judgment was provided in selection of appropriate interventions. Correct performance of therapeutic exercises was facilitated with verbal and visual cuing. Patient education as noted. Modalities: Body Region Treated - Ultrasound: R and L lateral epicondyle/extensor tendon and proximal muscle tissue Patient Position: seated with elbow/forearm propped on plinth Mode: 50% pulsed w/cm2: 1.2 Minutes: 20 (x 10 each arm) See flowsheet for details regarding treatment. Skilled Intervention: Proper administration and selection of modality based on clinical presentation, deficits, and needs. Patient response monitored throughout treatment. [facility]illing: [facility] [facility]: Therapeutic Exercise (35504): 1:1 time: 10 minutes (1 unit: 8-22 mins) Modalities Ultrasound (27805) 1:1 time: 20 minutes1 unit: 8-22 mins Total time: 30 minutes Micah Martinez PT CNTHERAPY Observed: 01/27/2018 Status: COMPLETED Source: [place] 2:30 PM [facility] REPOSITORY OT/PT/Speech Visit (PTWS) SANJEEV COLORADO ([id number]) 1975 M Date Time Provider Department 01/27/18 2:30 PM MICAH MARTINEZ (PT) PTWS Date Time Provider Department Center 01/27/2018 2:30 PM [id number]-DSNYMMICAH MARTINEZPT) PTWS [facility] Reason for Visit: Physical Therapy [503] Primary Visit Diagnosis:Lateral epicondylitis of both elbows [M77.11, M77.12] Allergies As of Date: 01/27/2018 (Not on File) Date Reviewed: Never Reviewed Progress Notes: Micah Martinez PT 01/27/2018 3:25 PM Signed Episode Visit Count: 5 Therapist That Will Oversee The Plan Of Care: Micah Martinez Start of Care Date: 01/06/18 Onset Date: 01/07/20 Plan of Care Certification Date: 01/06/18 Patient Identified by Name and Date of : Yes REHABILITATION AND SPORTS THERAPY PHYSICAL THERAPY TREATMENT NOTE ASSESSMENT: Sanjeev [place] demonstrated difficulty with increased pain rating and difficulty with UE function (donning/doffing sweatshirt and limited exercise tolerance d/t pain). The patient will continue to benefit from continued skilled physical therapy for soft tissue restrictions, ROM and pain control. PLAN FOR NEXT VISIT: Resume ther ex activities per pt tolerance and continue with US, stretches. May also resume IASTM per tolerance to pressure. SUBJECTIVE: Pt reports increased pain after last session with introduction of dry needling. He states increased pain over the weekend and is a little less today (8/10 from 10/10). He notes especially when he straightens his elbow and R is a little worse than L. Pain Score: 8/10 Pain Location: Elbow - Right;Elbow - Left Description: Sharp;Tightness Frequency: Continuous Post Treatment Pain Description: (not rated, no worse) OBJECTIVE MEASURES WITH LEVEL OF FUNCTION: Pt demonstrating some guarding of hand/wrist and arms in avoiding elbow and wrist extension. TREATMENT: Therapeutic Exercise: 1: UBE seat 5 arms only x 1:30 min. Instructed pt to avoid tight gripping of handles. Stopped early d/t starting to irritate elbow pain. 2: very gentle wrist extensor stretches 30 sec holds x 3 each arm. Skilled Intervention: Patient was educated in proper exercise technique and purpose for exercises. Reviewed and educated patient on additions/changes for home exercise program Skilled judgment was provided in selection of appropriate interventions. Correct performance of therapeutic exercises was facilitated with verbal and visual cuing. Patient education as noted. Modalities: Body Region Treated - Ultrasound: R and L lateral epicondyle/extensor tendon and proximal muscle tissue Patient Position: seated with elbow/forearm propped on plinth Mode: 50% pulsed w/cm2: 1.2 Minutes: 20 (x 10 each arm) See flowsheet for details regarding treatment. Skilled Intervention: Proper administration and selection of modality based on clinical presentation, deficits, and needs. Patient response monitored throughout treatment. Billing: [facility]: Therapeutic Exercise (41421): 1:1 time: 10 minutes (1 unit: 8-22 mins) Modalities Ultrasound (49009) 1:1 time: 20 minutes1 unit: 8-22 mins Total time: 30 minutes Micah Martinez, PT ORTHOPEDIC VISIT Observed: 01/26/2018 Status: F Source: [place] REPORT 3:34 PM [facility] REPOSITORY [facility] [address] [place] [address] 5 [place] [address] OFFICE VISIT Date of Service: 12/15/17 MR#: [id number] Acct: [id number] Name: SANJEEV COLORADO Rep #: [id number] : 1975 Provider: BOOM Brower Age/Sex: 42/M [place] [facility] [place] [place]: Signed Intake Intake Visit Reasons: LEFT ELBOW Is patient in pain?: Yes Allergies meperidine [From Demerol] Allergy (Verified 12/15/17 13:06) unknown Medications nabumetone 750 mg tablet 750 mg PO BID 04/11/17 [History Confirmed 04/11/17] PFSH Surgical History clavicle repair (Inactive) Social History Smoking Status: Heavy Smoker (>10/day) HPI LEFT ELBOW: Details: SANJEEV COLORADO is a 42 year old M here today for bilateral elbow pain, left greater than right. He continues to have pain over his lateral elbow. Patient notes that he has had pain for awhile. He saw Dr Penn in [place] and got an injection in [place]. The injections are helpful for about 3 months on his left elbow. Patient has increased pain with wrist and elbow range of motion. He has weakness when he has increased pain. Patient denies any MRI. Denies numbness, tingling or other associated symptoms. ROS Const Reports system reviewed and no additional complaints, except as docu Eyes Reports system reviewed and no additional complaints, except as docu ENT Reports system reviewed and no additional complaints, except as docu Card Reports system reviewed and no additional complaints, except as docu Resp Reports system reviewed and no additional complaints, except as docu GI Reports system reviewed and no additional complaints, except as docu Reports system reviewed and no additional complaints, except as docu Musc Reports joint pain Skin/Breast Reports system reviewed and no additional complaints, except as docu Neuro Yes system reviewed and no additional complaints, except as docu Psych Reports system reviewed and no additional complaints, except as docu Endo Reports system reviewed and no additional complaints, except as docu Ortho Exam Left Elbow Test: No Valgus Stress Test, No Varus Stress Test, No Pain w/ resist wrist ext, Yes TTP Lateral Epicondyle, Yes Pain w/ resist pronation, No Ulnar Nerve Subluxation, No Thenar Atrophy, No Pain w/ resist wrist flex, No TTP Medial Epicondyle Sensation: Radial: I, Ulnar: I, Median: I Motor: Elbow Extension: 5, Elbow Flexion: 5, EPL: 5, FDP-2: 5, 1st Dorsal Interosseous: 5 ELBOW: Patient has no evident abnormalities noted on inspection of the elbow. He has no localized or generalized swelling of the elbow and no bony abnormalities. He does have tenderness on the lateral epicondylar region as well as pain with resisted pronation and supination. He has good flexion and in extension without pains and normal strength. He has no evidence of any ulnar damage at this time. Assessment AND Plan Problems 1. Lateral epicondylitis of left elbow M77.12 Plan At this point patient has had multiple injections of the elbow with very temporary relief. He states that he feels that the elbow has progressively gotten worse over time. At this time we discussed treatment options which include doing nothing, anti- inflammatories, another injection, physical therapy, and/or further imaging with MRI. With injections being minimally effective and progressing symptoms we are going to order an MRI to evaluate for other soft tissue damage. We also going to start some physical therapy in order to work on some strengthening of the elbow and other anti-inflammatory modalities to see if we can find a more long-term solution. This has been a long time of recurring symptoms and thus pending on MRI results possible he could warrant further treatment with surgical release. Patient will return after physical therapy and over the MRI. He can return sooner if any worsening or new symptoms in the meantime. Plan Detail Follow Up 6 Weeks Coding Level of Care Code Off vis,est,level 3 Diagnoses Lateral epicondylitis of left elbow M77.12 Laterality: left 01/26/18 1534 <Electronically signed by Dennis NUR> Date Dennis NUR Cosigner Signature: Date (if applicable) CC: PROGRESS Observed: 01/20/2018 Status: COMPLETED Source: [place] 2:35 PM [facility] REPOSITORY [facility] ID: [id number] Author: Micah (Pt) Juan Service: (none) Author Type: Physical Therapist Type: Progress Notes Filed: 01/20/2018 3:39 PM Note Text: Episode Visit Count: 4 Therapist That Will Oversee The Plan Of Care: Micah Martinez Start of Care Date: 01/06/18 Onset Date: 01/07/20 Plan of Care Certification Date: 01/06/18 Patient Identified by Name and Date of : Yes REHABILITATION AND SPORTS THERAPY PHYSICAL THERAPY TREATMENT NOTE ASSESSMENT: Sanjeev [place] demonstrated difficulty with continued, consistent pain and improvements in R wrist extension AROM. The patient will continue to benefit from continued skilled physical therapy for there ex, dry needling and manual techniques for soft tissue restrictions, AROM and pain relief. PLAN FOR NEXT VISIT: Assess symptom resonse to addition of Dry Needling treatment today. Continue with ther ex, stretches and HEP. SUBJECTIVE: Pt denies any significant change in pain levels. Pain Score: 7/10 Pain Location: Elbow - Right;Elbow - Left Frequency: Intermittent Pain Location: Elbow - Right;Elbow - Left OBJECTIVE MEASURES WITH LEVEL OF FUNCTION: UE AROM R Wrist Extension: 55 Degrees (pain) R Wrist Flexion: 67 Degrees (pain) L Wrist Extension: 50 Degrees (pain) L Wrist Flexion: 70 Degrees (a little pain) TREATMENT: Therapeutic Exercise: 1: P Tband eccentric wrist extension bilaterally 2x20 2: Wrist extensors stretch 2x30 sec/side 3: UBE seat 8 arms only x 3 min. Instructiion to increase RPM 's to make pedalling easier. Skilled Intervention: Patient was educated in proper exercise technique and purpose for exercises. Reviewed and educated patient on additions/changes for home exercise program as above (*) Skilled judgment was provided in selection of appropriate interventions. Provided written instruction for home exercise program to facilitate proper performance and compliance. Correct performance of therapeutic exercises was facilitated with verbal and visual cuing. Patient education as noted. Manual Therapy: 1: IASTM using [employer] tools to R lateral epicondyle (surrounding tissues) 2: IASTM to L lateral epicondyle soft tissues using [employer] tools. Dry Needling: Pt educated on stretching and heat following needling intervention, as well as side effects and activity modification he needs to make until post needling soreness subsides. (1) 30mm needle to B brachioradialis with pistoning and fanning; (1) 25 mm needle to B extensor indicis with psitoning; (1) 25 mm needle to L extensor digitorum with pistoning; (1) 30 mm needle to R anconeus with pistoning and fanning. Skilled Intervention: Manual skills to improve joint mobility, ROM, and decrease pain. Utilized anatomy knowledge of the therapist, and assessment of patient's response to intervention. Billing: [facility]: Therapeutic Exercise (00789): 1:1 time: 15 minutes (1 unit: 8-22 mins) Manual Therapy (45381): 1:1 time: 30 minutes (2 units: 23- 37 mins) Total time: 45 minutes Micah Martinez, PT Kun Strauss, PT *Kun Strauss performed 18 minutes of dry needling and education of dry needling considerations with patient *Micah Martinez performed there ex and IASTM with patient CNTHERAPY Observed: 01/20/2018 Status: COMPLETED Source: [place] 2:30 PM [facility] REPOSITORY OT/PT/Speech Visit (PTWS) SANJEEV COLOARDO ([id number]) 1975 M Date Time Provider Department 01/20/18 2:30 PM MICAH MARTINEZ (PT) PTWS Date Time Provider Department Center 01/20/2018 2:30 PM [id number] MARTINEZ (PT) PTWS [facility] [place] Reason for Visit: Physical Therapy [503] Primary Visit Diagnosis:Lateral epicondylitis of both elbows [M77.11, M77.12] Allergies As of Date: 01/20/2018 (Not on File) Date Reviewed: Never Reviewed Progress Notes: Micah Martinez, PT 01/20/2018 3:39 PM Signed Episode Visit Count: 4 Therapist That Will Oversee The Plan Of Care: Micah Martinez Start of Care Date: 01/06/18 Onset Date: 01/07/20 Plan of Care Certification Date: 01/06/18 Patient Identified by Name and Date of : Yes REHABILITATION AND SPORTS THERAPY PHYSICAL THERAPY TREATMENT NOTE ASSESSMENT: Sanjeev [place] demonstrated difficulty with continued, consistent pain and improvements in R wrist extension AROM. The patient will continue to benefit from continued skilled physical therapy for there ex, dry needling and manual techniques for soft tissue restrictions, AROM and pain relief. PLAN FOR NEXT VISIT: Assess symptom resonse to addition of Dry Needling treatment today. Continue with ther ex, stretches and HEP. SUBJECTIVE: Pt denies any significant change in pain levels. Pain Score: 7/10 Pain Location: Elbow - Right;Elbow - Left Frequency: Intermittent Pain Location: Elbow - Right;Elbow - Left OBJECTIVE MEASURES WITH LEVEL OF FUNCTION: UE AROM R Wrist Extension: 55 Degrees (pain) R Wrist Flexion: 67 Degrees (pain) L Wrist Extension: 50 Degrees (pain) L Wrist Flexion: 70 Degrees (a little pain) TREATMENT: Therapeutic Exercise: 1: P Tband eccentric wrist extension bilaterally 2x20 2: Wrist extensors stretch 2x30 sec/side 3: UBE seat 8 arms only x 3 min. Instructiion to increase RPM 's to make pedalling easier. Skilled Intervention: Patient was educated in proper exercise technique and purpose for exercises. Reviewed and educated patient on additions/changes for home exercise program as above (*) Skilled judgment was provided in selection of appropriate interventions. Provided written instruction for home exercise program to facilitate proper performance and compliance. Correct performance of therapeutic exercises was facilitated with verbal and visual cuing. Patient education as noted. Manual Therapy: 1: IASTM using [employer] tools to R lateral epicondyle (surrounding tissues) 2: IASTM to L lateral epicondyle soft tissues using [employer] tools. Dry Needling: Pt educated on stretching and heat following needling intervention, as well as side effects and activity modification he needs to make until post needling soreness subsides. (1) 30mm needle to B brachioradialis with pistoning and fanning; (1) 25 mm needle to B extensor indicis with psitoning; (1) 25 mm needle to L extensor digitorum with pistoning; (1) 30 mm needle to R anconeus with pistoning and fanning. Skilled Intervention: Manual skills to improve joint mobility, ROM, and decrease pain. Utilized anatomy knowledge of the therapist, and assessment of patient's response to intervention. Billing: [facility]: Therapeutic Exercise ([id number]): 1:1 time: 15 minutes (1 unit: 8-22 mins) Manual Therapy (31128): 1:1 time: 30 minutes (2 units: 23- 37 mins) Total time: 45 minutes Micah Martinez, PT Kun Strauss, PT *Kun Strauss performed 18 minutes of dry needling and education of dry needling considerations with patient *Micah Martinez performed there ex and IASTM with patient PROGRESS Observed: 01/18/2018 Status: COMPLETED Source: [place] 5:22 PM [facility] [place] REPOSITORY O ID: [id number] Author: Sulema (Pt) Skyla Service: (none) Author Type: Physical Therapist Type: Progress Notes Filed: 01/19/2018 12:19 PM Note Text: Episode Visit Count: 3 Therapist That Will Oversee The Plan Of Care: Micah Martinez Start of Care Date: 01/06/18 Onset Date: 01/07/20 Plan of Care Certification Date: 01/06/18 Patient Identified by Name and Date of : Yes REHABILITATION AND SPORTS THERAPY PHYSICAL THERAPY TREATMENT NOTE ASSESSMENT: Sanjeev [place] demonstrated difficulty with pain B elbows which is not improving at current time with treatment. He is frustrated with continual pain. Patient with sharp pain with movement and has increase pain at night. No change in pain with treatment today. The patient will continue to benefit from continued skilled physical therapy for continuation of stretching, manual therapy and US. PLAN FOR NEXT VISIT: Continue with stretching, IASTM and US SUBJECTIVE: Patient reports minimal to no pain at rest and movement cause sharp pain. Pain Score: 8/10 Pain Location: Elbow - Right;Elbow - Left Description: Sharp (with movement and no pain at rest currently.) Frequency: Intermittent Post Treatment Pain Score: No Change OBJECTIVE MEASURES WITH LEVEL OF FUNCTION: Tenderness to palpation right and left lateral epicondyle. TREATMENT: Therapeutic Exercise: 1: UBE seat 8 arms only x 3 min. Instructiion to increase RPM 's to make pedalling easier. 2: B wrist extensor stretches 15 sec holsd x 3 reps each arm Skilled Intervention: Patient was educated in proper exercise technique and purpose for exercises. Reviewed and educated patient on additions/changes for home exercise program and patient instructed to continue with AROM of wrist and elbow with stretch only and not to the point of pain. Correct performance of therapeutic exercises was facilitated with verbal and visual cuing. Manual Therapy: 1: IASTM using [employer] tools to R lateral epicondyle (surrounding tissues) 2: IASTM to L lateral epicondyle soft tissues using [employer] tools. Skilled Intervention: Manual skills to improve joint mobility, ROM, and decrease pain. Utilized anatomy knowledge of the therapist, and assessment of patient's response to intervention. Modalities: Ultrasound Body Region Treated - Ultrasound: R and L lateral epicondyle/extensor tendon and proximal muscle tissue Patient Position: seated with elbow/forearm propped on plinth Mode: 50% pulsed w/cm2: 1.2 Minutes: 18 (total. 9 minutes each arm) See flowsheet for details regarding treatment. Skilled Intervention: Proper administration and selection of modality based on clinical presentation, deficits, and needs. Patient response monitored throughout treatment. Billing: [facility]: Therapeutic Exercise (35540): 1:1 time: 8 minutes (1 unit: 8-22 mins) Manual Therapy (02329): 1:1 time: 16 minutes (1 unit: 8-22 mins) Modalities Ultrasound (97512) 1:1 time: 18 minutes1 unit: 8-22 mins Total time: 42 minutes Emily Angel, PT-A Sulema Skyla, PT CNTHERAPY Observed: 01/18/2018 Status: COMPLETED Source: [place] 4:30 PM [facility] [place] REPOSITORY OT/PT/Speech Visit (PTWS) STANISLAVSANJEEV ([id number]) 1975 M Date Time Provider Department 01/18/18 4:30 PM EMILY WATSON (DAIRY CHEMIST) PTWS Date Time Provider Department Center 01/18/2018 4:30 PM [id number], NANCY (DAIRY CHEMIST) PTWS [facility] Reason for Visit: Physical Therapy [503] Primary Visit Diagnosis:Lateral epicondylitis of both elbows [M77.11, M77.12] Allergies As of Date: 01/18/2018 (Not on File) Date Reviewed: Never Reviewed Progress Notes: Sulema Crum PT 01/19/2018 12:19 PM Signed Episode Visit Count: 3 Therapist That Will Oversee The Plan Of Care: Micah Martinez Start of Care Date: 01/06/18 Onset Date: 01/07/20 Plan of Care Certification Date: 01/06/18 Patient Identified by Name and Date of : Yes REHABILITATION AND SPORTS THERAPY PHYSICAL THERAPY TREATMENT NOTE ASSESSMENT: Sanjeev [place] demonstrated difficulty with pain B elbows which is not improving at current time with treatment. He is frustrated with continual pain. Patient with sharp pain with movement and has increase pain at night. No change in pain with treatment today. The patient will continue to benefit from continued skilled physical therapy for continuation of stretching, manual therapy and US. PLAN FOR NEXT VISIT: Continue with stretching, IASTM and US SUBJECTIVE: Patient reports minimal to no pain at rest and movement cause sharp pain. Pain Score: 8/10 Pain Location: Elbow - Right;Elbow - Left Description: Sharp (with movement and no pain at rest currently.) Frequency: Intermittent Post Treatment Pain Score: No Change OBJECTIVE MEASURES WITH LEVEL OF FUNCTION: Tenderness to palpation right and left lateral epicondyle. TREATMENT: Therapeutic Exercise: 1: UBE seat 8 arms only x 3 min. Instructiion to increase RPM 's to make pedalling easier. 2: B wrist extensor stretches 15 sec holsd x 3 reps each arm Skilled Intervention: Patient was educated in proper exercise technique and purpose for exercises. Reviewed and educated patient on additions/changes for home exercise program and patient instructed to continue with AROM of wrist and elbow with stretch only and not to the point of pain. Correct performance of therapeutic exercises was facilitated with verbal and visual cuing. Manual Therapy: 1: IASTM using [employer] tools to R lateral epicondyle (surrounding tissues) 2: IASTM to L lateral epicondyle soft tissues using [employer] tools. Skilled Intervention: Manual skills to improve joint mobility, ROM, and decrease pain. Utilized anatomy knowledge of the therapist, and assessment of patient's response to intervention. Modalities: Ultrasound Body Region Treated - Ultrasound: R and L lateral epicondyle/extensor tendon and proximal muscle tissue Patient Position: seated with elbow/forearm propped on plinth Mode: 50% pulsed w/cm2: 1.2 Minutes: 18 (total. 9 minutes each arm) See flowsheet for details regarding treatment. Skilled Intervention: Proper administration and selection of modality based on clinical presentation, deficits, and needs. Patient response monitored throughout treatment. Billing: [facility]: Therapeutic Exercise ([id number]): 1:1 time: 8 minutes (1 unit: 8-22 mins) Manual Therapy ([id number]): 1:1 time: 16 minutes (1 unit: 8-22 mins) Modalities Ultrasound ([id number]) 1:1 time: 18 minutes1 unit: 8-22 mins Total time: 42 minutes Emily Watson PTCrystal Crum PT Previous Version Follow-up and Disposition History Recorded PROGRESS Observed: 01/13/2018 Status: COMPLETED Source: [place] 2:36 PM [facility] REPOSITORY [facility] ID: [id number] Author: Micah (Pt) Juan Service: (none) Author Type: Physical Therapist Type: Progress Notes Filed: 01/13/2018 3:25 PM Note Text: Episode Visit Count: 2 Therapist That Will Oversee The Plan Of Care: Micah Martinez Start of Care Date: 01/06/18 Onset Date: 01/07/20 Plan of Care Certification Date: 01/06/18 Patient Identified by Name and Date of : Yes REHABILITATION AND SPORTS THERAPY PHYSICAL THERAPY TREATMENT NOTE ASSESSMENT: Sanjeev [place] demonstrated difficulty with B elbow extension (end range caused increased pain). Good tolerance to today's treatment. The patient will continue to benefit from continued skilled physical therapy for B soft tissue restrictions, AROM and pain relief. PLAN FOR NEXT VISIT: Assess response to initiation of IASTM treatment. Continue with stretches, exercise, US and IASTM per symptom presentation. SUBJECTIVE: Pt noting he was able to play in a pool competition last night without much increase in elbow pain. He notes the pain can be worse or better in the mornings depending on what position his arms are in while he is sleeping. Pain Score: 7/10 Pain Location: Elbow - Right;Elbow - Left Frequency: Continuous Post Treatment Pain Score: 5/10 Pain Location: Elbow - Right;Elbow - Left OBJECTIVE MEASURES WITH LEVEL OF FUNCTION: Elbow Observations R Elbow/Wrist Palpation Tenderness: Lateral epicondyle (soft tissue restrictions palpable during IASTM) L Elbow/Wrist Palpation Tenderness: Lateral epicondyle (soft tissue restrictions palpable during IASTM) TREATMENT: Therapeutic Exercise: 1: UBE seat 5 pedals 7, 0 WL x 2 min 2: B wrist extensor stretches 30 sec holsd x 2 reps each arm Skilled Intervention: Patient was educated in proper exercise technique and purpose for exercises. Reviewed and educated patient on additions/changes for home exercise program Skilled judgment was provided in selection of appropriate interventions. Correct performance of therapeutic exercises was facilitated with verbal and visual cuing. Patient education as noted. Manual Therapy: 1: Initiated IASTM using [employer] boomerang tool to R lateral epicondyle (surrounding tissues) 2: IASTM to L lateral epicondyle soft tissues using [employer] boomerang tool. Skilled Intervention: Manual skills to improve joint mobility, ROM, and decrease pain. Utilized anatomy knowledge of the therapist, and assessment of patient's response to intervention. Modalities: Body Region Treated - Ultrasound: R and L lateral epicondyle/extensor tendon and proximal muscle tissue Patient Position: seated with elbow/forearm propped on plinth Mode: 50% pulsed w/cm2: 1.2 Minutes: 10 See flowsheet for details regarding treatment. Skilled Intervention: Proper administration and selection of modality based on clinical presentation, deficits, and needs. Patient response monitored throughout treatment. Billing: [facility]: Therapeutic Exercise (90396): 1:1 time: 8 minutes (1 unit: 8-22 mins) Manual Therapy (25976): 1:1 time: 16 minutes (1 unit: 8-22 mins) Modalities Ultrasound (18750) 1:1 time: 20 minutes1 unit: 8-22 mins Total time: 44 minutes Micah Martinez PT CNTHERAPY Observed: 01/13/2018 Status: COMPLETED Source: [place] 2:30 PM [facility] REPOSITORY OT/PT/Speech Visit (PTWS) SANJEEV COLORADO ([id number]) 1975 M Date Time Provider Department 01/13/18 2:30 PM MICAH MARTINEZ (PT) PTWS Date Time Provider Department Center 01/13/2018 2:30 PM [id number] MARTINEZ (PT) PTWS [facility] [place] Reason for Visit: Physical Therapy [503] Primary Visit Diagnosis:Lateral epicondylitis of both elbows [M77.11, M77.12] Allergies As of Date: 01/13/2018 (Not on File) Date Reviewed: Never Reviewed Progress Notes: Micah Martinez PT 01/13/2018 3:25 PM Signed Episode Visit Count: 2 Therapist That Will Oversee The Plan Of Care: Micah Martinez Start of Care Date: 01/06/18 Onset Date: 01/07/20 Plan of Care Certification Date: 01/06/18 Patient Identified by Name and Date of : Yes REHABILITATION AND SPORTS THERAPY PHYSICAL THERAPY TREATMENT NOTE ASSESSMENT: Sanjeev Green demonstrated difficulty with B elbow extension (end range caused increased pain). Good tolerance to today's treatment. The patient will continue to benefit from continued skilled physical therapy for B soft tissue restrictions, AROM and pain relief. PLAN FOR NEXT VISIT: Assess response to initiation of IASTM treatment. Continue with stretches, exercise, US and IASTM per symptom presentation. SUBJECTIVE: Pt noting he was able to play in a pool competition last night without much increase in elbow pain. He notes the pain can be worse or better in the mornings depending on what position his arms are in while he is sleeping. Pain Score: 7/10 Pain Location: Elbow - Right;Elbow - Left Frequency: Continuous Post Treatment Pain Score: 5/10 Pain Location: Elbow - Right;Elbow - Left OBJECTIVE MEASURES WITH LEVEL OF FUNCTION: Elbow Observations R Elbow/Wrist Palpation Tenderness: Lateral epicondyle (soft tissue restrictions palpable during IASTM) L Elbow/Wrist Palpation Tenderness: Lateral epicondyle (soft tissue restrictions palpable during IASTM) TREATMENT: Therapeutic Exercise: 1: UBE seat 5 pedals 7, 0 WL x 2 min 2: B wrist extensor stretches 30 sec holsd x 2 reps each arm Skilled Intervention: Patient was educated in proper exercise technique and purpose for exercises. Reviewed and educated patient on additions/changes for home exercise program Skilled judgment was provided in selection of appropriate interventions. Correct performance of therapeutic exercises was facilitated with verbal and visual cuing. Patient education as noted. Manual Therapy: 1: Initiated IASTM using [employer] boomerang tool to R lateral epicondyle (surrounding tissues) 2: IASTM to L lateral epicondyle soft tissues using [employer] boomerang tool. Skilled Intervention: Manual skills to improve joint mobility, ROM, and decrease pain. Utilized anatomy knowledge of the therapist, and assessment of patient's response to intervention. Modalities: Body Region Treated - Ultrasound: R and L lateral epicondyle/extensor tendon and proximal muscle tissue Patient Position: seated with elbow/forearm propped on plinth Mode: 50% pulsed w/cm2: 1.2 Minutes: 10 See flowsheet for details regarding treatment. Skilled Intervention: Proper administration and selection of modality based on clinical presentation, deficits, and needs. Patient response monitored throughout treatment. Billing: [facility]: Therapeutic Exercise (53033): 1:1 time: 8 minutes (1 unit: 8-22 mins) Manual Therapy (91994): 1:1 time: 16 minutes (1 unit: 8-22 mins) Modalities Ultrasound (01811) 1:1 time: 20 minutes1 unit: 8-22 mins Total time: 44 minutes Micah Martinez PT PROGRESS Observed: 01/06/2018 Status: COMPLETED Source: [place] 8:51 AM [facility] REPOSITORY O ID: [id number] Author: Micah (Pt) Juan Service: (none) Author Type: Physical Therapist Type: Progress Notes Filed: 01/06/2018 11:51 AM Note Text: Episode Visit Count: 1 Therapist That Will Oversee The Plan Of Care: Micah Martinez Start of Care Date: 01/06/18 Onset Date: 01/07/20 Plan of Care Certification Date: 01/06/18 Patient Identified by Name and Date of : Yes REHABILITATION AND SPORTS THERAPY PHYSICAL THERAPY EVALUATION PLAN OF CARE: Assessment: Sanjeev [place] presents with the diagnosis of B lateral epicondylitis. He presents with impairments of decreased AROM and strength of B UE. He may benefit from skilled therapy services to improve flexibility/AROM of B wrists and elbows, strengthening of B UE and manual techniques to reduce soft tissue restrictions, decrease pain and return to full function. Prognosis: Good Good due to: current objective clinical presentation;good overall health status;good support system/ coping skills;Prognosis may be limited Prognosis may be limited by: chronic nature of impairments;occupational demands Goals for Episode of Care: created on 01/06/18 through 03/08/18 Delta in home exercise program. Patient will decrease pain rating by 2 points to meet minimal clinical important difference for numeric pain rating scale. Patient will increase active ROM of B wrist and elbows to 70-75 deg and 0-145 deg respectively to allow pt to improved performance of ADLs. Patient will increase strength of B UE to 4+ to 5/5 to allow for return to prior functional status. Perform daily activities, work activities and undisturbed sleep with decreased report of symptoms/pain in 4-8 weeks. Demonstrate improvement on functional score: Patient will improve his/her score on Quick DASH by 8% to indicate a Minimal Clinical Important Difference . G CODE REPORTING Based on clinical assessment and the score on the Quick Dash Assessment Tool, the G code and corresponding severity modifiers are documented below. Evaluation: 01/06/2018 Current Status: Carrying, Moving and Handling Objects: G8984 CK 40-59% impaired Goal Status: Carrying, Moving and Handling Objects: G8985 CK 40-59% impaired Planned Interventions, Frequency, and Duration: Current Frequency: 2x/week Duration: 8 weeks Total Number of Visits Planned: 16 Planned Treatment Interventions: Therapeutic exercise;Manual therapy;Patient/Family/Caregiver Education;ModalitiesUltrasound PLAN FOR NEXT VISIT: Assess symptom response to initial treatment and HEP. Continue with stretches and progress as tolerated. Continue with ultrasound and may add IASTM or manual techniques to localized extensor tissues per pt tolerance. Patient demonstrates good understanding of plan of care and treatment. The above goals and plan of care were discussed and agreed upon by patient/family. SUBJECTIVE: Sanjeev [place] is a 42 year old male seen today for Pt reports onset of B (L>R) elbow pain for about 2 years. Denies any incident or injury. Gradual onset. Disturbed sleep d/t pain. If sleeps with arm straight, had to use other arm to bend it again. He states he is able to do daily activities, but is painful. 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 Patient Goals: Decrease pain and to be able to continue work activities. Functional Limitations: sleeping Prior Level of Function: Independent without limitations Intake Information: Prescription present Previous Treatment: Injections? (tennis elbow strap- no help/made worse) Pain Score: 6/10 Pain Location: Elbow - Right;Elbow - Left;Forearm - Left (tightness into forearm (elizabet. in mornings)) Description: Other: See comment (pain and tightness) Frequency: Continuous Post Treatment Pain Score: 6/10 Pain Location: Elbow - Right;Elbow - Left Post Treatment Pain Description: (no different) OBJECTIVE MEASURES WITH LEVEL OF FUNCTION: Elbow Observations R Elbow/Wrist Palpation Tenderness: Lateral epicondyle L Elbow/Wrist Palpation Tenderness: Lateral epicondyle UE AROM R Elbow Extension: 7 Degrees (lacking 7 deg from full extension, pain) R Elbow Flexion: 140 Degrees (pain) R Forearm Supination: 60 Degrees (min pain) R Forearm Pronation: 75 Degrees (min pain) R Wrist Extension: 47 Degrees (increased pain) R Wrist Flexion: 73 Degrees (pain) L Elbow Extension: 1 (1 deg from full extension) L Elbow Flexion: 145 Degrees L Forearm Supination: 68 Degrees (pain) L Forearm Pronation: 85 Degrees (pain) L Wrist Extension: 55 Degrees (pain) L Wrist Flexion: 70 Degrees UE and Cervical Strength R Elbow Flexion (C6): 5/5 R Elbow Extension (C7): 4+/5 (pain) R Forearm Supination: 4/5 (pain) R Forearm Pronation: 4/5 (pain) R Wrist Extension: 3+/5 (pain) R Wrist Flexion: 4-/5 (mild pain) L Elbow Flexion (C6): 5/5 L Elbow Extension (C7): 4/5 (pain) L Forearm Supination: 4/5 (pain) L Forearm Pronation: 4/5 (pain) L Wrist Extension: 3+/5 (pain) L Wrist Flexion: 4-/5 (pain) Education: Education Learning Preferences: Demonstration;Explanation Barriers: None Learning/educational needs: Home exercise program;Plan of Care Education Provided: Yes, see treatment interventions for education provided Education Provided To: Patient Education Mode/Type: Demonstration;Explanation/Discussion;Literature/Printed Materials;Performance Response to Education/Teach Back: States/Identifies;Return Demonstration TREATMENT: Evaluation Therapeutic Exercise: 1: *B wrist extensor stretches 30 sec holds, 1 x 5 reps each Skilled Intervention: Patient was educated in proper exercise technique and purpose for exercises. Skilled judgment was provided in selection of appropriate interventions. Provided written instruction for home exercise program to facilitate proper performance and compliance. Correct performance of therapeutic exercises was facilitated with verbal and visual cuing. Patient education as noted. Modalities: Ultrasound Body Region Treated - Ultrasound: L lateral epicondyle/extensor tendon and proximal muscle tissue Patient Position: seated with L elbow propped on towel Mode: 50% pulsed w/cm2: 1.2 Minutes: 10 See flowsheet for details regarding treatment. Skilled Intervention: Proper administration and selection of modality based on clinical presentation, deficits, and needs. Patient response monitored throughout treatment. Billing: [facility]: Evaluation - Low Complexity (92081) Therapeutic Exercise (87691): 1:1 time: 10 minutes (1 unit: 8-22 mins) Modalities Ultrasound (25366) 1:1 time: 10 minutes1 unit: 8-22 mins Total time: 40 minutes Micah Martinez PT CNTHERAPY Observed: 01/06/2018 Status: COMPLETED Source: [place] 8:45 AM [facility] REPOSITORY OT/PT/Speech Visit (PTWS) SANJEEV COLORADO ([id number]) 1975 M Date Time Provider Department 01/06/18 8:45 AM MICAH MARTINEZ (PT) PTWS Date Time Provider Department Center 01/06/2018 8:45 AM [id number] MARTINEZ (PT) PTWS [facility] [place] Reason for Visit: PT Eval [747] Primary Visit Diagnosis:Lateral epicondylitis of both elbows [M77.11, M77.12] Allergies As of Date: 01/06/2018 (Not on File) Date Reviewed: Never Reviewed Progress Notes: Micah Martinez PT 01/06/2018 11:51 AM Signed Episode Visit Count: 1 Therapist That Will Oversee The Plan Of Care: Micah Martinez Start of Care Date: 01/06/18 Onset Date: 01/07/20 Plan of Care Certification Date: 01/06/18 Patient Identified by Name and Date of : Yes REHABILITATION AND SPORTS THERAPY PHYSICAL THERAPY EVALUATION PLAN OF CARE: Assessment: Sanjeev [place] presents with the diagnosis of B lateral epicondylitis. He presents with impairments of decreased AROM and strength of B UE. He may benefit from skilled therapy services to improve flexibility/AROM of B wrists and elbows, strengthening of B UE and manual techniques to reduce soft tissue restrictions, decrease pain and return to full function. Prognosis: Good Good due to: current objective clinical presentation;good overall health status;good support system/ coping skills;Prognosis may be limited Prognosis may be limited by: chronic nature of impairments;occupational demands Goals for Episode of Care: created on 01/06/18 through 03/08/18 Delta in home exercise program. Patient will decrease pain rating by 2 points to meet minimal clinical important difference for numeric pain rating scale. Patient will increase active ROM of B wrist and elbows to 70-75 deg and 0-145 deg respectively to allow pt to improved performance of ADLs. Patient will increase strength of B UE to 4+ to 5/5 to allow for return to prior functional status. Perform daily activities, work activities and undisturbed sleep with decreased report of symptoms/pain in 4-8 weeks. Demonstrate improvement on functional score: Patient will improve his/her score on Quick DASH by 8% to indicate a Minimal Clinical Important Difference . G CODE REPORTING Based on clinical assessment and the score on the Quick Dash Assessment Tool, the G code and corresponding severity modifiers are documented below. Evaluation: 01/06/2018 Current Status: Carrying, Moving and Handling Objects: G8984 CK 40-59% impaired Goal Status: Carrying, Moving and Handling Objects: G8985 CK 40-59% impaired Planned Interventions, Frequency, and Duration: Current Frequency: 2x/week Duration: 8 weeks Total Number of Visits Planned: 16 Planned Treatment Interventions: Therapeutic exercise;Manual therapy;Patient/Family/Caregiver Education;ModalitiesUltrasound PLAN FOR NEXT VISIT: Assess symptom response to initial treatment and HEP. Continue with stretches and progress as tolerated. Continue with ultrasound and may add IASTM or manual techniques to localized extensor tissues per pt tolerance. Patient demonstrates good understanding of plan of care and treatment. The above goals and plan of care were discussed and agreed upon by patient/family. SUBJECTIVE: Sanjeev [place] is a 42 year old male seen today for Pt reports onset of B (L>R) elbow pain for about 2 years. Denies any incident or injury. Gradual onset. Disturbed sleep d/t pain. If sleeps with arm straight, had to use other arm to bend it again. He states he is able to do daily activities, but is painful. 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 Patient Goals: Decrease pain and to be able to continue work activities. Functional Limitations: sleeping Prior Level of Function: Independent without limitations Intake Information: Prescription present Previous Treatment: Injections? (tennis elbow strap- no help/made worse) Pain Score: 6/10 Pain Location: Elbow - Right;Elbow - Left;Forearm - Left (tightness into forearm (elizabet. in mornings)) Description: Other: See comment (pain and tightness) Frequency: Continuous Post Treatment Pain Score: 6/10 Pain Location: Elbow - Right;Elbow - Left Post Treatment Pain Description: (no different) OBJECTIVE MEASURES WITH LEVEL OF FUNCTION: Elbow Observations R Elbow/Wrist Palpation Tenderness: Lateral epicondyle L Elbow/Wrist Palpation Tenderness: Lateral epicondyle UE AROM R Elbow Extension: 7 Degrees (lacking 7 deg from full extension, pain) R Elbow Flexion: 140 Degrees (pain) R Forearm Supination: 60 Degrees (min pain) R Forearm Pronation: 75 Degrees (min pain) R Wrist Extension: 47 Degrees (increased pain) R Wrist Flexion: 73 Degrees (pain) L Elbow Extension: 1 (1 deg from full extension) L Elbow Flexion: 145 Degrees L Forearm Supination: 68 Degrees (pain) L Forearm Pronation: 85 Degrees (pain) L Wrist Extension: 55 Degrees (pain) L Wrist Flexion: 70 Degrees UE and Cervical Strength R Elbow Flexion (C6): 5/5 R Elbow Extension (C7): 4+/5 (pain) R Forearm Supination: 4/5 (pain) R Forearm Pronation: 4/5 (pain) R Wrist Extension: 3+/5 (pain) R Wrist Flexion: 4-/5 (mild pain) L Elbow Flexion (C6): 5/5 L Elbow Extension (C7): 4/5 (pain) L Forearm Supination: 4/5 (pain) L Forearm Pronation: 4/5 (pain) L Wrist Extension: 3+/5 (pain) L Wrist Flexion: 4-/5 (pain) Education: Education Learning Preferences: Demonstration;Explanation Barriers: None Learning/educational needs: Home exercise program;Plan of Care Education Provided: Yes, see treatment interventions for education provided Education Provided To: Patient Education Mode/Type: Demonstration;Explanation/Discussion;Literature/Printed Materials;Performance Response to Education/Teach Back: States/Identifies;Return Demonstration TREATMENT: Evaluation Therapeutic Exercise: 1: *B wrist extensor stretches 30 sec holds, 1 x 5 reps each Skilled Intervention: Patient was educated in proper exercise technique and purpose for exercises. Skilled judgment was provided in selection of appropriate interventions. Provided written instruction for home exercise program to facilitate proper performance and compliance. Correct performance of therapeutic exercises was facilitated with verbal and visual cuing. Patient education as noted. Modalities: Ultrasound Body Region Treated - Ultrasound: L lateral epicondyle/extensor tendon and proximal muscle tissue Patient Position: seated with L elbow propped on towel Mode: 50% pulsed w/cm2: 1.2 Minutes: 10 See flowsheet for details regarding treatment. Skilled Intervention: Proper administration and selection of modality based on clinical presentation, deficits, and needs. Patient response monitored throughout treatment. Billing: [facility]: Evaluation - Low Complexity (34944) Therapeutic Exercise (27554): 1:1 time: 10 minutes (1 unit: 8-22 mins) Modalities Ultrasound (75739) 1:1 time: 10 minutes1 unit: 8-22 mins Total time: 40 minutes Micah Martinez, PT Letter Text ORTHOPEDIC VISIT Observed: 04/14/2017 Status: F Source: [place] REPORT 7:50 AM [facility] REPOSITORY [facility] Orthopaedics AND Sports Medicine [address] [place], [place] [id number] OFFICE VISIT Date of Service: 04/11/17 MR#: [id number] Acct: [id number] Name: SANJEEV COLORADO Rep #: [id number] : 1975 Provider: Mik Penn DO Age/Sex: 41/M Location: [facility] Status: Signed Intake Vital Signs04/11/17 Height 6 ft 3 in 04/11/17 Weight: 185 lb 04/11/17 Body Mass Index (BMI) 23.1 Intake Visit Reasons: right elbow Is patient in pain?: Yes Allergies No Known Allergies Allergy (Verified 04/11/17 10:17) Medications nabumetone 750 mg tablet 750 mg PO BID 04/11/17 [History Confirmed 04/11/17] PFSH Surgical History clavicle repair (Inactive) Social History Smoking Status: Heavy Smoker (>10/day) HPI right elbow: Details: SANJEEV COLORADO is a 41 year old M here today for Ortho Exam Right Elbow Swelling: No Skin/Wound: Yes CDI Contralateral Normal: Yes ROM: Yes Flexion 0-140, Extension 0, Supination 0-90 and Pronation 0-80 Test: Yes TTP Lateral Epicondyle, No Valgus Stress Test, No Varus Stress Test, No TTP Medial Epicondyle, Yes Pain w/ resist wrist ext, Yes Pain w/ resist wrist flex, No Pain w/ resist pronation, No Pain w/ resist 3rd dig ext, No Thenar Atrophy, No Ulnar Nerve Subluxation, No Milking Sign Sensation: Radial: I, Ulnar: I, Median: I Motor: Elbow Extension: 5, Elbow Flexion: 5, EPL: 5, FDP-2: 5, 1st Dorsal Interosseous: 5 ELBOW: Patient is alert and oriented 3 in no acute distress. Appropriate eye contact and affect. Otherwise intact the C5-T2 distributions. He has positive pulses. He has no adenopathy. He is tender palpation of the bilateral lateral epicondyles. He has positive Nirschl's examinations bilaterally. X-rays: Evaluated myself patient of the right elbow-no gross bony abnormalities are identified joint spaces otherwise well-preserved. Normal healthy-appearing joint. Left Elbow Swelling: No Skin/Wound: Yes CDI Contralateral Normal: No Test: Yes TTP Lateral Epicondyle, Yes Pain w/ resist wrist ext, Yes Pain w/ resist wrist flex, No Valgus Stress Test, No Varus Stress Test, No TTP Medial Epicondyle, No Pain w/ resist pronation, No Pain w/ resist 3rd dig ext, No Thenar Atrophy, No Ulnar Nerve Subluxation, No Milking Sign ROM: Yes Flexion 0-140, Extension 0, Supination 0-90 and Pronation 0-80 Sensation: Radial: I, Ulnar: I, Median: I Motor: Elbow Extension: 5, Elbow Flexion: 5, EPL: 5, FDP-2: 5, 1st Dorsal Interosseous: 5 Office Procedures Ortho Injections Injections Yes Lateral Epicondyle Office Meds Kenalog Performing Provider: Mik Penn DO Administered by: Mik Penn DO on 04/11/17 10:17 Dose Route Admin Location Lot Number Expiration Date [facility] [employer]ric[employer] Operator Assessment AND Plan Problems 1. Right lateral epicondylitis M77.11 2. Left elbow pain M25.522 3. Left lateral epicondylitis M77.12 4. Right elbow pain M25.521 Plan Assessment: Right elbow lateral epicondylitis right elbow pain new initial encounter, and left elbow pain left lateral epicondylitis subsequent encounter Plan: At this point time I reviewed the x-rays with patient that he brought into the right elbow and there are essentially normal. Patient has symptoms consistent with lateral epicondylitis as he does on the opposite side. At this point time are to go ahead and proceed with bilateral lateral condyle injection using standard technique. Patient did show a little bit of skin change to his left side from the steroid and I explained to him what that was. He is very thin and does not have very much soft tissue underneath the condyle is not surprising that he would get a little bit of a bleaching from the steroid. I cautioned him that this may happen the other side and he was okay with that. Patient was subsequently consented for bilateral lateral epicondyle injections using 1.5 cc cocktail of 1 cc of Marcaine and 0.5 cc of Kenalog for each elbow. Patient was prepped and draped in usual fashion and the area of maximal tenderness was identified we then injected directly over top that area is soft tissue needle stimulation to get some needle healing technique going. Patient was then placed a compressive wrap. Patient will follow up with me in 3 months as needed. If he fails conservative measures consideration for either MRIs to the elbows and/or consideration for arthroscopic lateral condyle debridement. Orders Orders: Medications Discontinued: Kenalog (triamcinolone acetonide) D1 mg (0.1 mL) IM ONCE NS M25.521, M25.522 Nikki Davidson iscontinued Reason: Office Medication has been Documented as given Coding Level of Care Code Off vis,est,level 4 Diagnoses Right lateral epicondylitis M77.11 Left elbow pain M25.522 Left lateral epicondylitis M77.12 Right elbow pain M25.521 04/14/17 0750 <Electronically signed by Mik Penn DO> Date Mik Penn DO Cosignjose Signature: Date (if applicable) CC: XR ELBOW MINIMUM 3 Observed: 03/31/2017 Status: F Source: [place] [employer] VIEWS RIGHT 10:33 AM [facility] REPOSITORY ORIGINAL XR ELBOW MINIMUM 3 VIEWS RIGHT CLINICAL STATEMENT: rt elbow pain COMPARISON: None FINDINGS:No acute fracture or dislocation is identified. The soft tissue structures are unremarkable IMPRESSION:Normal exam Interpreted By: Shauna Flores MD Preliminary Report By: Shauna Flores MD Electronically Signed By: Shauna Flores MD Dictated Date: 03/31/2017 11:00:34 AM Prelim Date: 03/31/2017 11:00:34 AM Sign Date: 03/31/2017 11:00:44 AM ALLERGIES ALLERGIES DATE TYPE / CODE NAME / CODE REACTION SEVERITY SOURCE 02/23/2018 Drug meperidine/F0 Unknown Unknown [facility] Allergy/4160 [id number]([facility] Hospital 76705(SNOMED RM) Repository CT) 04/11/2017 Drug No Known Unknown [facility] Allergy/4160 Allergies/F00 Hospital 97299(SNOMED [id number](RXNOR Repository CT) M) ENCOUNTERS ENCOUNTERS ADMIT/DISCHARGE ACCOUNT NUMBER ADMITTING ENCOUNTER LOCATION SOURCE CLASS 03/14/2018/03/14/19 [id number] Ambulatory BMSBuilding: [place] 19 BMS.[facility] Repository 03/10/2018 [id number] Ambulatory [facility] Hospital ding:MRI Repository 02/23/2018/02/23/19 [id number] Ambulatory BMSBuilding: [place] 19 BMS.[facility] Repository 02/17/2018/02/21/20 [id number] Ambulatory [address] [place] Repository 02/10/2018/02/14/20 [id number] Ambulatory [address] [place] Repository 02/06/2018/02/10/20 [id number] Ambulatory [address] [place] Repository 01/30/2018/02/01/20 [id number] Ambulatory [address] [place] Repository 01/27/2018/01/31/20 [id number] Ambulatory [address] [place] Repository 01/20/2018/01/24/20 [id number] Ambulatory [address] [place] Repository 01/18/2018/01/20/20 [id number] Ambulatory [address] [place] Repository 01/13/2018/01/14/20 [id number] Ambulatory [address] Repository 01/06/2018/01/10/20 [id number] Ambulatory [address] Repository 12/15/2017/12/16/19 [id number] Ambulatory BMSBuilding: [place] 18 BMS.[facility] Repository 04/11/2017/04/11/19 [id number] Ambulatory BMSBuilding: [place] 18 BMS.[facility] Repository 03/31/2017/03/31/19 [id number] Ambulatory [address] ding:[facility] Repository PAYERS PAYERS ENCOUNTER GUARANTOR PAYER SUBSCRIBER SOURCE 03/14/2018 SANJEEV Mora Primary [address]EE[address] [place] Insurance:CARESOURCEP GRE[place]: [facility] Number: [id number] [place], [place] [id number] Repository [address]Zdg: (330) Date:2018-03-10P O [phone] () [address]ATTN: [place] [address]CQ: 03/14/2018 Secondary NOT GIVENUNK [place] Insurance:SELF PAY [facility] Number: Effective Repository Date:2018-03-13 03/10/2018 SANJEEV Mora Primary [address]EE[address] [place] Insurance:CARESOURCEP [place]: [facility] Number: [id number] [place], [place] [id number] Repository [address]Mzv: ([phone]) Date:2018-03-08P O [phone] () [address]ATTN: [place] [address]PG: 03/10/2018 Secondary NOT GIVENUNK [place] Insurance:SELF PAY [facility] Number: Effective Repository Date:2018-03-08 02/23/2018 SANJEEV HADDAD Primary SANJEEV SANTAMARIAB: [address] [place] Insurance:CARESOURCEP [id number] [facility] Number: Hospital [address]Jkz: (330) [id number] Repository [phone] () Date:2018-02-10P [address]ATTN: [place] [address]ZU: 02/23/2018 Secondary NOT GIVENUNK [place] Insurance:SELF PAY [facility] Number: Effective Repository Date:2018-02-20 12/15/2017 SANJEEV ESTVEES1 Primary SANJEEV SANTAMARIAB: [facility] Insurance:CARESOURCEP [id number] [facility] mo olic Number: Hospital [id number]: 330 [id number] Repository [phone] (HP) Date:2017-11-23 [address]ATTN: [place] [address]HT: 12/15/2017 Secondary NOT GIVENUNK Addy Insurance:SELF PAY [facility] Number: Effective Repository Date:2017-12-15 04/11/2017 SANJEEV ESTEVES1 Primary SANJEEV SANTAMARIAB: [facility] Insurance:CARESOURCEP [id number] [facility] Number: Hospital [id number]: [id number] Repository [phone] Date:2017-04-04 O -8 () [address]ATTN: [place] [address]HF: 04/11/2017 Secondary NOT GIVENUNK Add[place] Insurance:SELF PAY [facility] Number: Effective Repository Date:2017-04-04 03/31/2017 SANJEEV SANTAMARIAB: Primary SANJEEV SANTAMARIAB: [facility] Insurance:CARESOURCE [id number] [facility] [address] [place] [address] Repository [place] Number: [place] [address]Dvz: 330 [id number] [id number]: (HP) Date:2017-03-31 [phone] ()Tel: ([phone]) Name:[phone] () [address] [place] [phone]:
== END ==
PROVIDERS: Referring Provider Physician Assistant; Visit Provider Physician Assistant
DX: M77.10 Lateral epicondylitis, unspecified elbow (principal)
CPT/HCPCS: 73221

== ENCOUNTER → 2020-05-09 12:30 | Outpatient (CLI) | payer BC, SELFPAY ==
[2019-08-06 15:33] VITALS: BMI 23.1
--- NOTE | 2020-05-09 12:37 | MRI_ITS ---
STUDY: MRI LEFT ELBOW REASON FOR EXAM: Left elbow pain, tingling in fingers, decreased range of motion. TECHNIQUE: Standardized fat and water weighted pulse sequences were obtained in all 3 orthogonal planes. COMPARISON: Radiographs 04/22/2020. FINDINGS: Normal radio-capitellum articulation. There is a mild sprain of the proximal radial collateral ligament (inversion recovery coronal image 10). There is tendinosis and partial tear of the common extensor tendon (inversion recovery coronal images 11, 12; T2 axial image 14). Normal ulnotrochlear articulation. Normal ulnar collateral ligamentous complex. There is mild tendinosis of the common flexor tendon (inversion recovery coronal image 10). The cubital tunnel is normal, with a normal ulnar nerve. Normal biceps tendon and distal insertion. Normal lacertus fibrosis. Normal brachialis musculotendinous insertion. Normal triceps tendon and teno-osseous insertion. Normal olecranon process. The visualized distal humerus, proximal radius, and ulna are normal. The visualized muscles of the distal arm and proximal forearm are normal. There is a small joint effusion (T2 sagittal images 14-17). MRI/Upper Ext Joint Only(Routine) IMPRESSION: Lateral epicondylitis with tendinosis and partial tear of the common extensor tendon. Mild sprain of the radial collateral ligament. Mild medial epicondylitis with mild tendinosis of the common flexor tendon. Small joint effusion. Electronically Signed: Laci Duff MD at 13:58 EDT Tel , Service support ,
== END ==
PROVIDERS: Referring Provider Orthopaedic Surgery; Visit Provider Orthopaedic Surgery
DX: M77.12 Lateral epicondylitis, left elbow (principal)
CPT/HCPCS: 73221

== ENCOUNTER 2020-05-21 10:32 | Day surgery (SDC) | payer BC, SELFPAY ==
[2019-08-06 15:33] VITALS: BMI 23.1
[2020-05-21] VITALS (10 sets, daily range): BP systolic 123–158; BP diastolic 69–104; PULSE 57–90; RESP 14–16; TEMP 36.3–36.6; O2SAT 94–100; BMI 20.5
[2020-05-21] MEDS: Lactated Ringers 1,000 ML 100 ML IV ×2 (11:04→13:52)
--- NOTE | 2020-05-21 11:04 | PCM.DC.ORTHO ---
Discharge Diet: No Restrictions - leave splint intact, follow up in 2 weeks, may use hand and wrist as tolerated, no heavy lifting, call with concerns Discharge Activity: May Not Drive May shower in (days): 1 Ice area for (Minutes): 20 - Every hour while awake. Weight Bearing Status: Weight bearing as tolerated Keep extremity elevated above heart level: Operative Extremity Call your doctor if your incision/area has: Continuous Slow Oozing, Sudden Increased Bleeding, Increased Pain/ Swelling, Increased Redness, Foul Smelling Discharge Call your doctor if you observe: Fever of 101 or Higher, Coldness, Increased Pain, Numbness or Tingling, Change in Color, Calf discomfort Allergies/Adverse Reactions: Allergies meperidine [From Demerol] Allergy (Verified 05/21/20 10:48) Veins in his arm went purple Medications to take at Discharge Acetaminophen [Tylenol Extra Strength] 500 - 1,000 mg PO Q6H PRN PRN 05/15/20 Oxycodone HCl/Acetaminophen [Percocet 5/325] 1 - 2 tablet PO Q6H PRN PRN 5 Days #28 tablet 05/21/20 The following prescriptions were given: Oxycodone HCl/Acetaminophen [Percocet 5/325] 1 - 2 tablet PO Q6H PRN PRN 5 Days #28 tablet PRN Reason: Pain Transmission Status: Sent to [facility] Primary Care Physician: Care Physician,No Primary [Primary Care Provider] - Test Results: Test results from this visit will be discussed in further detail at your follow-up appointment, if applicable. Please Follow Up With: Hyacinth Garnica, DO - [phone]
--- NOTE | 2020-05-21 11:04 | PCM.OPRPT ---
Report of Operation Date of Procedure: 05/21/20 Pre-Operative Diagnosis: left tennis elbow/ lateral epicondylitis Post-Operative Diagnosis: same Surgery/Procedure Performed:: left lateral epicondyle debridement/ecrb debridement/ tendon repair with arthrex mini suture [employer] project manager: Candelario Brower Anesthesiologist: Simeon Johnson Estimated Blood Loss (mL): min Fluids Replaced: 900cc Description of Procedure: Preop note Patient is a 44-year-old male is had left lateral epicondylitis for quite some time is had multiple injections his MRI confirms ECRB debridement with a pretty significant tear of his lateral epicondyle. Risk benefits alternatives surgery discussed with patient. Risk include but not limited to blood loss, blood clot, infection, neurovascularly, failure procedure, loss of life and loss of limb. Patient is aware like proceed with left epicondyle debridement ECRB debridement possible tendon repair. We did discuss the patient had to have tender. Venous hinged brace for 6 weeks. Operative note Patient seen examined preop holding area. Left arm is marked. Patient brought the operating placed supine on the operating table. Signed, anesthesia, antibiotics were administered. All bony promises well-padded SCDs placed on his bilateral lower extremity. We then marked our incision for lateral epicondyle debridement repair. This and it was about a centimeter and a half. We then elevate exsanguinated arms and the tourniquet was raised to pressure of 250 torr. We then performed a timeout. We then used a 15 blade to cut through the skin dissected down to the fascia, we then cleaned this made us direct incision was found the EDC and the ECRL we then made incision through the ECRL with the tendon interface down to the bone of the lateral epicondyle. We then used a sharp 15 blade underneath the ECRL and the EDC to debride back the grayish ECRB that was visualized is quite extensive degenerative tissue throughout. We had a debride quite a significant amount of the ECRB and the undersurface of the ECRL at that point we did decide to place an Arthrex suture tack MD feels a tendon bone healing as patient is quite active in labor. We used 3 5 K wire to drill through the bone we then inserted standard technique drill for suture tack mini suture tack Arthrex and then placed a running stitch and then tied off and this was a good secure tendon bone interface suture repair. We then oversewed with 3-0 Vicryl we closed the fascia with a 3-0 Vicryl and the skin with 3-0 Vicryl in a running 4 Monocryl. Sterile dressings were applied. And a splint was applied to the left upper extremity. Tourniquet was deflated for. Patient taught procedure well no complication transfer recovery room in stable condition. Postoperative Nonweightbearing splint at all times Follow-up in 2 weeks Call with increased pain numbness tingling further issue arise Pharmacy has prescriptions Dragon disclaimer Dragon disclaimer This note was generated with [employer] dictation software. It may contain incorrect words, spelling, and punctuation that were not noted in checking the note before signing. Dragon disclaimer
--- NOTE | 2020-05-21 11:05 | HP.PCM_ITS ---
History and Physical I have re-examined the patient. There are no clinical changes since date of exam. Intake Intake Visit Reasons: LEFT ELBOW Allergies meperidine [From Demerol] Allergy (Verified 04/22/20 13:39) Veins in his arm went purple [facility] Surgical History (Updated 04/11/17 @ 10:44 by Oziel Jasso) clavicle repair (Inactive) HPI LEFT ELBOW: Surgical H&P: Yes Details: Parts of this documentation were recorded by a scribe, this documentation accurately reflects the service provided and the decisions made by me, Dr. Hyacinth Garnica, DO 05/13/20 [id number]. SANJEEV [place] is a 44 year old M here today for F/U on left elbow after having MRI completed. He states that he has had tennis elbow for a while now. He states his pain is increased because he hasnt had any injections. Continues to have left lateral epicondyle pain. ROS Musc Reports as per HPI, Reports joint pain Skin/Breast Reports as per HPI Neuro Yes as per HPI Ortho Exam General General: Yes no acute distress Neurologic: Yes alert, Yes oriented x3 Psychologic: Yes reasonable and appropriate Right Elbow Test: Yes TTP Lateral Epicondyle, Yes Pain w/ resist 3rd dig ext Sensation: Radial: I, Ulnar: I, Median: I Motor: Elbow Extension: 5, Elbow Flexion: 5, EPL: 5, FDP-2: 5, 1st Dorsal Interosseous: 5 Left Elbow Skin/Wound: Yes CDI, No eccymosis, No erythema, No Swelling Test: Yes TTP Lateral Epicondyle, Yes Pain w/ resist wrist ext, Yes Pain w/ resist 3rd dig ext Sensation: Radial: I, Ulnar: I, Median: I Motor: Elbow Extension: 5, Elbow Flexion: 5, EPL: 5, FDP-2: 5, 1st Dorsal Interosseous: 5 Assessment & Plan Problems 1. Lateral epicondylitis, left elbow M77.12 Plan Personally reviewed patients MRI of the left elbow. Patient educated that he does have left tennis elbow. Since he has been getting injections since 2019 then it is recommended that he has the surgical repair vs debridement at this time. Reviewed the pre-operative plans with the patient. Risks and benefits of the procedure were fully explained, including but not limited to infection, neurovascular injury, continued pain, arthritis, stiffness, need for further surgery, re-injury, DVT, PE, general risks of anesthesia, and loss of limb or life. The patient understands all the risks and does wish to proceed with written consent for left lateral epicondyle debridement, repair as indicated. Follow up 2 weeks post op or sooner if pain, swelling, numbness or associated symptoms, or concerns develop. All questions answered. Patient in agreement of plan. Coding Level of Care Code Off vis,est,level 4 Diagnoses Lateral epicondylitis, left elbow M77.12 COVID (Procedure Consent) Procedure Criteria Procedure Criteria: Yes Elective The surgeon/proceduralist and patient have discussed in detail the risk of exposure to and/or potential harm posed by the COVID-19 virus with having a surgery/procedure at this time versus the risk of? delaying the surgery/procedure. It is not possible to know either the risk of delaying the surgery or procedure or chance of getting an infection with perfect accuracy, but a joint decision was made between the patient and the surgeon/proceduralist ?to proceed at this time with the scheduled surgery/procedure as indicated on the consent form.
[2020-05-21] MEDS: Cefazolin 2 GM in 0.9% Normal Saline 100 ML IV (11:37)
[2020-05-21] MEDS: Mupirocin Ointment 22gm Tube 1 APPLIC (12:00)
--- NOTE | 2020-05-21 12:00 | SOF_PTH ---
PATIENT: SANJEEV COLORADO LOC: [facility] U#:[id number] AGE/SX: 44/M ROOM: RE05/21/[address]: Dr. Hyacinth Garnica DO : 1975 BED: DIS: 05/21/2020 SPEC #: [id number] RECD: 05/21/20 14:55 STATUS: RASHMI REDonavan #: [id number] AYALA: 05/21/20 12:[address]: Hyacinth Garnica DEPT: SURGICAL PATHOLOGY RECD BY: Alexandra Pavon ENTERED: 05/22/20 07:21 SP TYPE: SOFT TISS OTHR DR: No Primary Care Phys Tissues: Soft tissues, NOS Procedures: Surgery Specimen Level IV HEADER OPERATION: Elbow lateral epicondyle debridement, tennis elbow PRE-OP DIAGNOSIS: Lateral epicondylitis left elbow TISSUE SUBMITTED: ECRB MICROSCOPIC DIAGNOSIS Soft tissue of left elbow, excision: Fibrous tissue with fibrinoid degeneration, reparative change and dystrophic microcalcifications. AM:jamey 05/23/2020 MICROSCOPIC DESCRIPTION Slides are reviewed. GROSS DESCRIPTION Received in fixative is one container labeled with the patient's name and designated ECRB. The specimen consists of multiple fragments of rush-white, indurated tissue that in aggregate measure 1.5 x 1.5 x 0.3 cm. The specimen is totally submitted in one cassette. / SJ:jamey 05/22/20 TC:5 CPT: 64458
[2020-05-21] MEDS: HYDROcodone Bitartrate/Apap 5/325 Tablet PO (15:14)
== END 2020-05-21 15:51 | disposition home or self-care (01) ==
LOC: SDC 10:33 → AC 10:34
PROVIDERS: Referring Provider Orthopaedic Surgery; Visit Provider Orthopaedic Surgery
PROC: (CPT 24357; principal; 2020-05-21 11:45)
DX: M77.12 Lateral epicondylitis, left elbow (principal); I10 Essential (primary) hypertension; F17.200 Nicotine dependence, unspecified, uncomplicated; Z20.822 Contact with and (suspected) exposure to COVID-19
CPT/HCPCS: 01710; 24341; 87426; 88305; C9803; J7120; J2405